=== PATIENT | female | born 1950 | race Caucasian/White ===

== ENCOUNTER 2020-02-09 10:35 | Outpatient (REF) | payer MEDICARE, SELFPAY ==
[2020-02-09 14:02] LABS: Hematocrit 43.2 % (37-47); Hemoglobin 14.4 g/dl (12.0-16.0); Mean Corpuscular HGB Conc 33.3 g/dl (31.0-35.0); Mean Corpuscular Hemoglobin 29.3 pg (27.0-33.0); Mean Platelet Volume 10.8 fL (9.4-12.3); Platelet Count 341 X10*3/uL (160-400); Red Blood Count 4.91 X10*6/uL (4.20-5.50); White Blood Count 6.7 X10*3/uL (4.8-10.8)
[2020-02-09 14:24] LABS: Alanine Aminotransferase 17 U/L (0-31); Anion Gap 16 (12-20); Aspartate Amino Transferase 14 U/L (5-31); Blood Urea Nitrogen 21 mg/dL (9-16); Calcium 9.4 mg/dL (8.4-10.2); Carbon Dioxide 27 mmol/L (22-29); Chloride 97 mmol/L (96-108); Cholesterol 180 mg/dL; Estimated Glomerular Filt Rate 49; HDL Cholesterol 54 mg/dL; LDL Cholesterol Calculated 90 mg/dl; Sodium 135 mmol/L (135-145); Triglycerides 182 mg/dL
[2020-02-09 14:26] LABS: Glucose Fasting 430 mg/dL (60-99)
[2020-02-09 14:45] LABS: TSH reflex Free T4 1.62 mIU/mL (0.32-4.0); Vitamin D 25-OH Total 36.6 ng/mL (>30)
[2020-02-09 15:06] LABS: Creatinine Urine 65.95 mg/dL; Microalbum/Creatinine Ratio Ur 13.6 ug/mg cr
== END 2020-02-09 10:36 | disposition home or self-care (01) ==
LOC: HO.HMGCLDS 10:35
PROVIDERS: Internal Medicine; PCP Internal Medicine; Visit Provider Internal Medicine
DX: Z00.01 Encounter for general adult medical examination with abnormal findings (principal); E11.9 Type 2 diabetes mellitus without complications; E78.5 Hyperlipidemia, unspecified; I10 Essential (primary) hypertension; R79.89 Other specified abnormal findings of blood chemistry; Z13.6 Encounter for screening for cardiovascular disorders; M85.852 Other specified disorders of bone density and structure, left thigh; R42 Dizziness and giddiness; Z83.49 Family history of other endocrine, nutritional and metabolic diseases
CPT/HCPCS: 36415; 80048; 80061; 82043; 82306; 84443; 84450; 84460; 85027

== ENCOUNTER 2020-07-09 10:34 | Outpatient (REF) | payer MEDICARE, SELFPAY ==
[2020-07-09 15:00] LABS: Estimated Average Glucose 212 mg/dL
[2020-07-09 15:28] LABS: Alanine Aminotransferase 15 U/L (0-31); Anion Gap 16 (12-20); Aspartate Amino Transferase 13 U/L (5-31); Blood Urea Nitrogen 20 mg/dL (9-16); Carbon Dioxide 28 mmol/L (22-29); Chloride 102 mmol/L (96-108); Cholesterol 168 mg/dL; Estimated Glomerular Filt Rate > 60; Glucose Fasting 200 mg/dL (60-99); HDL Cholesterol 55 mg/dL; LDL Cholesterol Calculated 89 mg/dl; Potassium 4.5 mmol/L (3.3-5.1); Sodium 141 mmol/L (135-145); Triglycerides 120 mg/dL
[2020-07-09 15:41] LABS: Vitamin D 25-OH Total 36.7 ng/mL (>30)
[2020-07-09 16:01] LABS: Creatinine Urine 192.91 mg/dL; Microalbum/Creatinine Ratio Ur 37.8 ug/mg cr
== END 2020-07-09 10:35 | disposition home or self-care (01) ==
LOC: HO.HMGCLDS 10:34
PROVIDERS: PCP Internal Medicine; Visit Provider Internal Medicine
DX: I10 Essential (primary) hypertension (principal); E11.29 Type 2 diabetes mellitus with other diabetic kidney complication; E11.65 Type 2 diabetes mellitus with hyperglycemia; E78.5 Hyperlipidemia, unspecified; R80.9 Proteinuria, unspecified; Z78.0 Asymptomatic menopausal state
CPT/HCPCS: 36415; 80048; 80061; 82043; 82306; 83036; 84450; 84460

== ENCOUNTER 2020-12-13 10:40 | Outpatient (REF) | payer MEDICARE, SELFPAY ==
[2020-12-13 14:08] LABS: Estimated Average Glucose 226 mg/dL; Hemoglobin A1c % 9.5 %
[2020-12-13 14:25] LABS: Alanine Aminotransferase 13 U/L (0-31); Anion Gap 14 (12-20); Aspartate Amino Transferase 12 U/L (5-31); Blood Urea Nitrogen 24 mg/dL (9-16); Carbon Dioxide 27 mmol/L (22-29); Chloride 104 mmol/L (96-108); Cholesterol 204 mg/dL; Estimated Glomerular Filt Rate 58; Glucose Fasting 259 mg/dL (60-99); HDL Cholesterol 62 mg/dL; LDL Cholesterol Calculated 117 mg/dl; Potassium 5.1 mmol/L (3.3-5.1); Sodium 140 mmol/L (135-145); Triglycerides 128 mg/dL
[2020-12-13 14:46] LABS: Vitamin D 25-OH Total 38.8 ng/mL (>30)
== END 2020-12-13 10:41 | disposition home or self-care (01) ==
LOC: HO.HMGCLDS 10:40
PROVIDERS: PCP Internal Medicine; Visit Provider Internal Medicine
DX: Z00.01 Encounter for general adult medical examination with abnormal findings (principal); E78.5 Hyperlipidemia, unspecified; E11.29 Type 2 diabetes mellitus with other diabetic kidney complication; E11.65 Type 2 diabetes mellitus with hyperglycemia; R80.9 Proteinuria, unspecified; I10 Essential (primary) hypertension; M85.89 Other specified disorders of bone density and structure, multiple sites; Z78.0 Asymptomatic menopausal state
CPT/HCPCS: 36415; 80048; 80061; 82306; 83036; 84450; 84460

== ENCOUNTER 2021-01-01 14:00 | Outpatient (REF) | payer MEDICARE, SELFPAY ==
--- NOTE | ~2021-01-01 | MM_ITS ---
EXAMINATION: MM SCREENING DIGITAL BREAST TOMOSYNTHESIS, BILATERAL CLINICAL INFORMATION: Screening. Asymptomatic. The lifetime risk of breast cancer based on the Tyrer-Cuzick Model is 9.3%. COMPARISON: Mammography: December 28, 2019 and studies dating back to January 13, 2011 TECHNIQUE: Digital breast tomosynthesis is performed in both the craniocaudal and mediolateral oblique views along with computer-aided detection (CAD). Synthesized 2D images are generated from the tomosynthesis. FINDINGS: The breasts are almost entirely fatty (ACR BI-RADS breast composition Category a). There are no significant masses, abnormal calcifications, or other abnormalities. MM/MM tomosynthesis screening BI IMPRESSION: There are no significant changes from prior study. ASSESSMENT: BI-RADS 1: Negative RECOMMENDATION: Routine annual mammography screening. This patient's information was entered into a reminder system with a target due date for their next mammogram.
--- NOTE | ~2021-01-01 | MM_ITS ---
EXAMINATION: BONE DENSITOMETRY CLINICAL INDICATION: Screening for osteoporosis. COMPARISON: Previous BD dated 06/12/2017 and baseline BD dated 01/13/2011. TECHNIQUE: Using a OneTwoSee DXA System (software version: 13.1) manufactured by [employer], dual-energy x-ray absorptiometry was performed of the lumbar spine and left hip. The images are of good technical quality. Summary results are attached. FINDINGS: AP SPINE L1-L4: Current: BMD 1.046 g/cm2, Z-score -0.5, T-score -1.1, osteopenia, 6.2% increase from previous, 2.3% decrease from baseline (<5% change is not significant). Prior: BMD 0.985 g/cm2. Baseline: BMD 1.071 g/cm2. LEFT FEMUR, NECK: Current: BMD 0.742 g/cm2, Z-score -1.2, T-score -2.1, osteopenia. Prior: BMD 0.836 g/cm2. Baseline: BMD 0.960 g/cm2. LEFT FEMUR, TOTAL: Current: BMD 0.879 g/cm2, Z-score -0.4, T-score -1.0, normal, 10.5% decrease from previous, 12.4% decrease from baseline (<5% change is not significant). Prior: BMD 0.982 g/cm2. Baseline: BMD 1.003 g/cm2. IDENTIFIED RISK FACTORS: Menopause. HISTORY OF FRACTURE: None listed. MEDICATIONS: Calcium or multivitamin. MM/XR DEXA axial skeleton IMPRESSION: 1. DIAGNOSIS: Osteopenia based on the lowest T-score value of -2.1 in the femoral neck applying World Health Organization criteria. 2. 10-YEAR FRACTURE RISK PREDICTION, FRAX: Major osteoporotic fracture (clinical spine, forearm, hip or shoulder) 11.6%. Hip fracture 2.2%. 3. Treatment Recommendations: NOF guidelines recommend consideration for treatment in postmenopausal women and men age 50 and older presenting with the following: -A hip or vertebral (clinical or morphometric) fracture. -T-score less than or equal to -2.5 at the femoral neck or spine after appropriate evaluation to exclude secondary causes. -Low bone mass at the hip or spine and a 10-year fracture probability by FRAX of greater than or equal to 3% for hip fracture or greater than or equal to 20% for major osteoporotic fracture based on the [place] adapted WHO algorithm. 4. Other Recommendations: All treatment decisions require clinical judgment and consideration of individual patient factors, including patient preferences, comorbidities, previous drug use, risk factors not captured in the FRAX model (e.g. frailty, falls, vitamin D deficiency, increased bone turnover, interval significant decline in bone density) and possible under or overestimation of fracture risk by FRAX. Additional medical evaluation for secondary cause of low bone mineral density may be appropriate. FUTURE SCAN RECOMMENDATION: People with diagnosed cases of osteoporosis or at high risk for fracture should have regular bone mineral density tests. For patients eligible for Medicare, routine testing is allowed once every 2 years. The testing frequency can be increased to one year for patients who have rapidly progressing disease, those who are receiving or discontinuing medical therapy to restore bone mass, or have additional risk factors.
== END 2021-01-01 14:01 | disposition home or self-care (01) ==
LOC: HO.MAMMO 14:00
PROVIDERS: PCP Internal Medicine; Visit Provider Internal Medicine
DX: Z13.820 Encounter for screening for osteoporosis (principal); Z78.0 Asymptomatic menopausal state; M85.89 Other specified disorders of bone density and structure, multiple sites; Z12.31 Encounter for screening mammogram for malignant neoplasm of breast
CPT/HCPCS: 77063; 77067; 77080

== ENCOUNTER 2021-04-01 08:05 | Outpatient (REF) | payer MEDICARE, SELFPAY ==
[2021-04-01 12:32] LABS: Vitamin D 25-OH Total 30.2 ng/mL (>30)
[2021-04-01 12:36] LABS: Estimated Average Glucose 346 mg/dL; Hemoglobin A1c % 13.7 %
[2021-04-01 12:42] LABS: Alanine Aminotransferase 14 U/L (0-31); Anion Gap 14 (12-20); Aspartate Amino Transferase 12 U/L (5-31); Blood Urea Nitrogen 20 mg/dL (9-16); Carbon Dioxide 25 mmol/L (22-29); Chloride 101 mmol/L (96-108); Cholesterol 157 mg/dL; Estimated Glomerular Filt Rate 58; HDL Cholesterol 42 mg/dL; LDL Cholesterol Calculated 82 mg/dl; Potassium 4.4 mmol/L (3.3-5.1); Sodium 136 mmol/L (135-145); Triglycerides 168 mg/dL
[2021-04-01 13:00] LABS: Glucose Fasting 350 mg/dL (60-99)
== END 2021-04-01 08:06 | disposition home or self-care (01) ==
LOC: HO.HMGCLDS 08:05
PROVIDERS: PCP Internal Medicine; Visit Provider Internal Medicine
DX: E11.65 Type 2 diabetes mellitus with hyperglycemia (principal); E11.29 Type 2 diabetes mellitus with other diabetic kidney complication; E78.5 Hyperlipidemia, unspecified; I10 Essential (primary) hypertension; M85.89 Other specified disorders of bone density and structure, multiple sites; R80.9 Proteinuria, unspecified
CPT/HCPCS: 36415; 80048; 80061; 82306; 83036; 84450; 84460

== ENCOUNTER 2021-07-11 09:12 | Outpatient (REF) | payer MEDICARE, SELFPAY ==
[2021-07-11 11:27] LABS: Estimated Average Glucose 186 mg/dL; Hemoglobin A1c % 8.1 %
[2021-07-11 11:37] LABS: Alanine Aminotransferase 13 U/L (0-31); Anion Gap 19 (12-20); Aspartate Amino Transferase 15 U/L (5-31); Blood Urea Nitrogen 25 mg/dL (9-16); Calcium 9.8 mg/dL (8.4-10.2); Carbon Dioxide 24 mmol/L (22-29); Chloride 101 mmol/L (96-108); Cholesterol 187 mg/dL; Estimated Glomerular Filt Rate 54; Glucose Fasting 148 mg/dL (60-99); HDL Cholesterol 49 mg/dL; LDL Cholesterol Calculated 112 mg/dl; Potassium 4.7 mmol/L (3.3-5.1); Sodium 139 mmol/L (135-145); Triglycerides 133 mg/dL
[2021-07-11 12:13] LABS: Creatinine Urine 80.76 mg/dL; Microalbum/Creatinine Ratio Ur 17.3 ug/mg cr
[2021-07-11 14:52] LABS: Vitamin D 25-OH Total 33.9 ng/mL (>30)
== END 2021-07-11 09:13 | disposition home or self-care (01) ==
LOC: HO.HMGCLDS 09:12
PROVIDERS: PCP Internal Medicine; Visit Provider Internal Medicine
DX: I10 Essential (primary) hypertension (principal); E78.5 Hyperlipidemia, unspecified; E11.29 Type 2 diabetes mellitus with other diabetic kidney complication; R80.9 Proteinuria, unspecified; E11.65 Type 2 diabetes mellitus with hyperglycemia; M85.89 Other specified disorders of bone density and structure, multiple sites; Z78.0 Asymptomatic menopausal state
CPT/HCPCS: 36415; 80048; 80061; 82043; 82306; 83036; 84450; 84460

== ENCOUNTER 2021-10-11 08:44 | Outpatient (REF) | payer MEDICARE, SELFPAY ==
[2021-10-11 11:39] LABS: Alanine Aminotransferase 17 U/L (0-31); Anion Gap 18 (12-20); Aspartate Amino Transferase 18 U/L (5-31); Blood Urea Nitrogen 37 mg/dL (9-16); Calcium 9.4 mg/dL (8.4-10.2); Carbon Dioxide 23 mmol/L (22-29); Chloride 102 mmol/L (96-108); Cholesterol 165 mg/dL; Estimated Glomerular Filt Rate 49; Glucose Fasting 151 mg/dL (60-99); HDL Cholesterol 47 mg/dL; LDL Cholesterol Calculated 91 mg/dl; Potassium 4.8 mmol/L (3.3-5.1); Sodium 138 mmol/L (135-145); Triglycerides 139 mg/dL
[2021-10-11 12:04] LABS: Estimated Average Glucose 229 mg/dL; Hemoglobin A1c % 9.6 %
== END 2021-10-11 08:45 | disposition home or self-care (01) ==
LOC: HO.HMGCLDS 08:44
PROVIDERS: PCP Internal Medicine; Visit Provider Internal Medicine
DX: E11.29 Type 2 diabetes mellitus with other diabetic kidney complication (principal); E11.65 Type 2 diabetes mellitus with hyperglycemia; E78.5 Hyperlipidemia, unspecified; I10 Essential (primary) hypertension; R80.9 Proteinuria, unspecified
CPT/HCPCS: 36415; 80048; 80061; 83036; 84450; 84460

== ENCOUNTER 2022-01-21 14:25 | Outpatient (REF) | payer MEDICARE, SELFPAY ==
--- NOTE | ~2022-01-21 | MM_ITS ---
EXAMINATION: MM SCREENING DIGITAL BREAST TOMOSYNTHESIS, BILATERAL CLINICAL INFORMATION: Screening. Asymptomatic. The lifetime risk of breast cancer based on the Tyrer-Cuzick Model is 8%. COMPARISON: Mammography: 01/01/2021, 12/28/2019, 08/24/2018 TECHNIQUE: Digital breast tomosynthesis is performed in both the craniocaudal and mediolateral oblique views along with computer-aided detection (CAD). Synthesized 2D images are generated from the tomosynthesis. Additional left CC and right CC x2 views are provided. FINDINGS: The breasts are almost entirely fatty (ACR BI-RADS breast composition Category a). There are no significant masses, abnormal calcifications, or other abnormalities. Stromal pattern is similar to prior studies. There is no developing density or architectural abnormality. The axilla and skin contours are unremarkable. No significant changes. MM/MM tomosynthesis screening BI IMPRESSION: No mammographic evidence of malignancy. ASSESSMENT: BI-RADS 1: Negative RECOMMENDATION: Routine annual mammography screening. This patient's information was entered into a reminder system with a target due date for their next mammogram.
== END 2022-01-21 14:26 | disposition home or self-care (01) ==
LOC: HO.MAMMO 14:25
PROVIDERS: PCP Internal Medicine; Visit Provider Internal Medicine
DX: Z12.31 Encounter for screening mammogram for malignant neoplasm of breast (principal)
CPT/HCPCS: 77063; 77067

== ENCOUNTER 2022-03-18 08:48 | Outpatient (REF) | payer MEDICARE, SELFPAY ==
[2022-03-18 12:21] LABS: Alanine Aminotransferase 13 U/L (0-31); Anion Gap 16 (12-20); Aspartate Amino Transferase 14 U/L (5-31); Blood Urea Nitrogen 25 mg/dL (9-16); Carbon Dioxide 28 mmol/L (22-29); Chloride 102 mmol/L (96-108); Cholesterol 199 mg/dL; Estimated Glomerular Filt Rate > 60; Glucose Fasting 135 mg/dL (60-99); HDL Cholesterol 57 mg/dL; LDL Cholesterol Calculated 120 mg/dl; Potassium 4.9 mmol/L (3.3-5.1); Sodium 141 mmol/L (135-145); Triglycerides 112 mg/dL
[2022-03-18 12:29] LABS: Vitamin D 25-OH Total 34.7 ng/mL (>30)
[2022-03-18 13:21] LABS: Estimated Average Glucose 163 mg/dL; Hemoglobin A1c % 7.3 %
== END 2022-03-18 08:49 | disposition home or self-care (01) ==
LOC: HO.HMGCLDS 08:48
PROVIDERS: PCP Internal Medicine; Visit Provider Internal Medicine
DX: E11.65 Type 2 diabetes mellitus with hyperglycemia (principal); E78.5 Hyperlipidemia, unspecified; I10 Essential (primary) hypertension
CPT/HCPCS: 36415; 80048; 80061; 82306; 83036; 84450; 84460

== ENCOUNTER 2022-08-19 09:00 | Outpatient (REF) | payer MEDICARE, SELFPAY ==
[2022-08-19 11:40] LABS: Estimated Average Glucose 171 mg/dL; Hemoglobin A1c % 7.6 %
[2022-08-19 12:01] LABS: Alanine Aminotransferase 12 U/L (0-31); Anion Gap 12 (12-20); Aspartate Amino Transferase 12 U/L (5-31); Blood Urea Nitrogen 20 mg/dL (9-16); Calcium 9.3 mg/dL (8.4-10.2); Carbon Dioxide 27 mmol/L (22-29); Chloride 106 mmol/L (96-108); Cholesterol 166 mg/dL; Estimated Glomerular Filt Rate > 60; Glucose Fasting 159 mg/dL (60-99); HDL Cholesterol 53 mg/dL; LDL Cholesterol Calculated 99 mg/dl; Potassium 4.3 mmol/L (3.3-5.1); Sodium 141 mmol/L (135-145); Triglycerides 74 mg/dL
[2022-08-19 12:09] LABS: Creatinine Urine 84.16 mg/dL; Microalbum/Creatinine Ratio Ur 20.1 ug/mg cr
[2022-08-19 12:18] LABS: Vitamin D 25-OH Total 42.4 ng/mL (>30)
== END 2022-08-19 09:01 | disposition home or self-care (01) ==
LOC: HO.HMGCLDS 09:00
PROVIDERS: PCP Internal Medicine; Visit Provider Internal Medicine
DX: E11.65 Type 2 diabetes mellitus with hyperglycemia (principal); E78.5 Hyperlipidemia, unspecified; I10 Essential (primary) hypertension; M17.11 Unilateral primary osteoarthritis, right knee; M85.89 Other specified disorders of bone density and structure, multiple sites; Z78.0 Asymptomatic menopausal state
CPT/HCPCS: 36415; 80048; 80061; 82043; 82306; 83036; 84450; 84460

== ENCOUNTER 2022-12-23 08:20 | Outpatient (REF) | payer MEDICARE, SELFPAY ==
[2022-12-23 12:26] LABS: Alanine Aminotransferase 11 U/L (0-31); Anion Gap 14 (12-20); Aspartate Amino Transferase 14 U/L (5-31); Blood Urea Nitrogen 27 mg/dL (9-16); Calcium 9.8 mg/dL (8.4-10.2); Carbon Dioxide 24 mmol/L (22-29); Chloride 106 mmol/L (96-108); Cholesterol 182 mg/dL (<200); Estimated Glomerular Filt Rate 59; Glucose Fasting 176 mg/dL (60-99); HDL Cholesterol 56 mg/dL (>40); LDL Cholesterol Calculated 95 mg/dL (<100); Potassium 4.3 mmol/L (3.3-5.1); Sodium 140 mmol/L (135-145); Triglycerides 156 mg/dL (<150)
[2022-12-23 12:34] LABS: Estimated Average Glucose 217 mg/dL; Hemoglobin A1c % 9.2 % (<6.0)
== END 2022-12-23 08:21 | disposition home or self-care (01) ==
LOC: HO.HMGCLDS 08:20
PROVIDERS: PCP Internal Medicine; Visit Provider Internal Medicine
DX: E11.65 Type 2 diabetes mellitus with hyperglycemia (principal); E78.5 Hyperlipidemia, unspecified; I10 Essential (primary) hypertension
CPT/HCPCS: 36415; 80048; 80061; 83036; 84450; 84460

== ENCOUNTER 2022-12-25 09:25 | Outpatient (AMB) | payer MEDICARE, SELFPAY ==
--- NOTE | 2022-12-25 09:34 | A.OFFPC_ITS ---
Vital Signs 12/25/22 09:39 Height 5 ft 6 in Weight 211 lb BMI 34.1 BP 132/70 Blood Pressure Location Rt brachial Position Sitting Pulse 64 Pulse Source Pulse Oximeter Pulse Oximetry (%) 97 Oxygen Delivery Method Room Air Intake Visit Reasons: Annual PE Intake Note: Pt is here today for her PE Allergies No Known Allergies Allergy (Verified 12/25/22 09:54) Medication List - Last Reconciled 12/25/22 by Jayleen Mujica MD atorvastatin 20 mg PO DAILY BD Ultra-Fine Short Pen Needle (pen needle, diabetic) administer 10 units subcutaneous at bedtime NS blood sugar diagnostic (RSB SPINEuch Verio test strips) Check blood sugar 3 times a day before meals empagliflozin 25 mg PO QAM lisinopril 5 mg PO DAILY metformin 1,000 mg PO BID 90 days valacyclovir 2,000 mg (2 x 1 gram) PO Q12H PRN Tobacco use date assessed: 12/25/22 Fall risk assessment: No Falls in past year Last assessed Fall Risk: 12/25/22 Dental Screening Dental Screen Date: 12/25/22 Did you have a dental visit in the last 12 months?: Yes Did you have a dental problem in the last 6 months where you did not have access to dental care?: Yes Was dental information given to patient?: Patient has dentist HPI Annual PE HPI Details 72-year-old lady with diabetes mellitus, hyperlipidemia, hypertension and osteopenia and multiple sites, here today for her physical exam. Glucose not well controlled on current treatment with Jardiance and metformin, with hemoglobin A1c today at 9.2%, her fasting lipids however are within normal limits, taking atorvastatin 20 mg daily. Blood pressure also stable and controlled on lisinopril 5 mg daily. Up-to-date with her screening mammogram, due for repeat bone density scan this year. She is also up-to-date with her diabetes retinopathy screening done earlier this year. She had a colonoscopy done by Dr. Donovan in 2017, with removal of a tubular adenoma, overdue for repeat screening [facility] Medical History (Updated 12/25/22 @ 10:19 by Jayleen Mujica MD) History of adenomatous polyp of colon Osteoarthritis of right knee Tubular adenoma of colon Recurrent cold sores Osteopenia of multiple sites HTN (hypertension) Dyslipidemia Diabetes mellitus with hyperglycemia, without long-term current use of insulin Surgical History History of knee surgery History of tubal ligation Family History Father Colon cancer CVD (cardiovascular disease) HTN (hypertension) Mother Goiter Diabetes mellitus Sister No problems noted. Sister No problems noted. Sister No problems noted. Son Mental health disorder Son No problems noted. Social History Housing: House Alcohol intake: never Patient Tobacco Use Status: Never used Tobacco e-Cigarette/Vaping Use: Never Used Second Hand Smoke Exposure: No service: No Current occupational status: retired Cognitive needs: No Hearing needs: No Vision needs: Yes Questionnaire PHQ-9 Over the last 2 weeks, how often have you been bothered by any of the following problems? Depression Screening Interpretation: Negative Source: Developed by Drs. Rodger Harrington, Aris Salazar and colleagues, with an educational cassy from [employer]. Thrive Questionnaire Date Thrive assessed: 08/22/22 KIMBER-7 AMB Questionnaire KIMBER-7 Date KIMBER - 7 assessed: 08/22/22 Source: Developed by Drs. Rodger Harrington, Sharon Oneil, Aris Oejda and colleagues, with an educational cassy from [employer] [facility]. Review of Systems Const Denies difficulty sleeping, Denies fatigue, Denies fever(s), Denies headache(s), Denies malaise and Reports weight gain Eyes Details: Up-to-date with her retinopathy screening Denies change in vision and Reports requires corrective lenses ENT Denies dizziness, Denies headache(s), Denies nasal congestion, Denies nasal discharge and Denies sore throat Card Denies chest pain, Denies lightheadedness, Denies palpitations and Denies dyspnea Resp Denies chest congestion, Denies cough and Denies dyspnea GI Denies abdominal pain, Denies change in bowel habits and Denies heartburn Denies urinary frequency, Denies dysuria and Denies urinary urgency Musc Denies joint swelling, Reports stiffness and Denies tingling Skin/Breast Denies breast swelling, Denies breast pain, Denies breast mass and Denies rash Neuro Denies dizziness, Denies headache(s) and Denies tingling Psych Denies anxiety and Denies depression Endo Denies fatigue, Denies polydipsia, Denies polyuria and Denies palpitations Shiv/Lymph Reports no additional complaints Aller/Immun Reports no additional complaints Physical exam (Primary Care) Vital Signs: Last Vital Signs Pulse 64 12/25/22 09:39 BP 132/70 12/25/22 09:39 Pulse Ox 97 12/25/22 09:39 Oxygen Delivery Method Room Air 12/25/22 09:39 BMI result Body Mass Index 34.1 Tobacco/Smoking Status: Tobacco use Status Tobacco use date assessed 12/25/22 12/25/22 09:35 Patient Tobacco Use Status Never used Tobacco 12/25/22 09:35 e-Cigarette/Vaping Use Never Used 12/25/22 09:35 Depression Screening Interpretation: Negative Thrive Assessment: Date of Thrive Assessment Date Thrive assessed 08/22/22 12/25/22 09:35 Const Other: Alert oriented x3, no acute distress noted ambulatory with normal gait Orientation/consciousness: patient oriented x3 HENMT General nose exam: Normal external nose present and No nasal discharge present Face and sinus: Yes face symmetric Mouth: moist mucous membranes Eyes General: appearance normal, both eyes and all related structures Neck Neck: Yes full ROM, Yes no lymphadenopathy and Yes supple Chest Breast/axilla palpation: normal palpation of the breasts and normal palpation of the axillae Resp Effort & Inspection: normal respiratory effort and able to speak in complete sentences Auscultation: clear to auscultation bilaterally Cardio Other: S1 S2 present regular rate and rhythm Palpation: normal PMI GI Inspection: Yes normal to inspection Palpation (GI): nontender, no guarding and no masses Auscultation: normal bowel sounds General: Yes no CVA tenderness Back/Spine/Pelvis Back: no CVA tenderness and No back tenderness Skin General skin exam: no rashes or lesions noted Neuro General: patient oriented x3, gait normal, tone normal, moves all extremities, Normal light touch and pain sensation, no focal motor deficits, CN's II-XI intact bilaterally and normal sensation to monofilament Extrem General: Yes normal to inspection, Yes full ROM, Yes no joint enlargement, Yes no pedal edema, Yes no calf tenderness and Yes normal gait Psych Appearance: grossly normal and well kempt Mental Status: mental status grossly normal Speech and movement: Normal speech and movement present Affect: normal affect Attitude: cooperative Thought process: Normal thought process present Immunizations pneumoc 20-claudia conj-dip cr(PF) 0.5 mL IM syringe Performing Provider: Jayleen Mujica MD Performing Location: [facility] Administered by: Sol Roe CMA on 12/25/22 10:17 Dose Route Admin Location Dispensed Lot Number Expiration Date NDC Big Data Engineer 0.5 mL IM Left Deltoid 0.5 mL [id number] 02/18/24 5306-9028-44 [employer] VIS Given Date VIS Provided VIS Publication Date 12/25/22 Single Vaccine 21 Eligibility Eligibility Date Funding Source Not VFC Eligible 12/25/22 Private Results Reviewed Results Reviewed: RUN: 12/25/2252 PAGE 1 [facility] [address] [place] [phone] Library Media Technician: Carlos Eller M.D. Specimen Inquiry Name: Criss Geller Age/Sex: 72/F : 1950 Unit#: [id number] Attend Dr: Jayleen Mujica MD Re12/23/22 Status: DEP REF Location: [facility] Disch: SPEC : [id number] JENNA: 12/23/22 STATUS: COMP REQ : [id number] RECD: 12/23/[address]: Jayleen Mujica MD COMP: 12/23/22 ENTERED: 12/23/[address]: ORDERED: Met Prof Fast, AST, ALT, Lipid Panel Test Result Flag Reference Site Sodium 140 135-145 mmol/L Potassium 4.3 3.3-5.1 mmol/L CL 106 96-108 mmol/L CO2 24 22-29 mmol/L Gap 14 12-20 BUN 27 H 9-16 mg/dL Creat 0.94 0.5-1.4 mg/dL EGFR 59 NOTE: For -[place] individuals, multiply the result by 1.210. Chronic Kidney Disease: Estimated GFR < 60 mL/min/1.73m2 Severe Kidney Disease: Estimated GFR < 15 mL/min/1.73m2 FBS 176 H 60-99 mg/dL A fasting glucose of 126 mg/dl or greater on more than one occasion is considered diagnostic of diabetes. CA 9.8 8.4-10.2 mg/dL AST (GOT) 14 5-31 U/L ALT (GPT) 11 0-31 U/L Triglyceride 156 H <150 mg/dL Desirable Triglyceride: less than 150 mg/dL Borderline High Triglyceride 150-199 mg/dL High Triglyceride: 200-499 mg/dL Very High Triglyceride: greater than or equal to 5OO mg/dL Cholesterol 182 <200 mg/dL Desirable Cholesterol: less than 200 mg/dL Borderline High Cholesterol: 200-239 mg/dL High Cholesterol: greater than 239 mg/dL LDL Calculated 95 <100 mg/dL Desirable LDL: less than 100 mg/dL Near Optimal/Above Optimal LDL: 110-129 mg/dL Borderline High LDL: 130-159 mg/dL High LDL: 160-189 mg/dL Very High LDL: greater than or equal to 190 mg/dL HDL 56 >40 mg/dL Desirable HDL: greater than 40 mg/dL Note: This HDL assay may give artificially low results in patients with liver disease. RUN: 12/25/22 0935 PAGE 1 [facility] [address] [place] [phone] Library Media Technician: Carlos Eller M.D. Specimen Inquiry Name: GellerCriss Age/Sex: 72/F : 1950 Unit#: [id number] Attend Dr: Jayleen Mujica MD Re12/23/22 Status: DEP REF Location: [facility] Disch: SPEC : [id number] JENNA: 12/23/22 STATUS: COMP REQ : [id number] RECD: 12/23/[address]: Jayleen Mujica MD COMP: 12/23/22 ENTERED: 12/23/[address] [facility] [address]: ORDERED: Hgb A1c Test Result Flag Reference Site A1c % 9.2 H <6.0 % Hemoglobin A1C Reference Range Adults: 4.8 - 6.0 % Non diabetic: < 6.0 % Goal: < 7.0 % Additional Action Suggested: > 8.0 % Note: Hemoglobin A1c results are invalid for patients with abnormal amounts of HbF. Blood transfusions may impact the HbA1c concentration in the patien t sample. Est. Avg. Gluc 217 mg/dL ENTERED: 08/19/[address] [facility] [address]: ORDERED: MICARU Test Result Flag Reference Site Creat, Ur 84.16 mg/dL Microalbumin Ur 17.0 mg/L Alb/Creat Ratio 20.1 ug/mg cr Albumin/Creatinine Ratio Reference Ranges: Normal: < 30 ug/mg creatinine Microalbuminuria: 30 - 300 ug/mg creatinine Clinical Albuminuria: > 300 ug/mg creatinine Assessment and Plan Assessment & Plan (1) Annual visit for general adult medical examination with abnormal findings: Code(s): Z00.01 - Encounter for general adult medical examination with abnormal findings Plan: Recent fasting lab results discussed with patient . Recommended dental visit every 6 months and continue with yearly eye exams . Take adequate calcium in diet and vitamin-D 3 at 2000 IU per cap once a day, in addition to weight- bearing exercises to help maintain good muscle tone and weight control. Instructed to do self-breast exam, and continue to get yearly mammogram, already scheduled for 01/27/2023, ordered a bone density scan to be done same day. Prevnar 20 given today, reminded to get her yearly flu shot and the new COVID booster as well as RSV and to get her Shingrix vaccine may being sometime next year. Referred to GI Clinic for her repeat colonoscopy, last done in [address] Donovna with removal of a tubular adenoma polyp (2) Osteopenia of multiple sites: Code(s): M85.89 - Other specified disorders of bone density and structure, multiple sites Plan: Continue doing regular weight-bearing exercise, take adequate calcium from dieta ry sources and continue with taking pijp-wzu-suuqocq vitamin-D 3 at 2000 units daily. Repeat bone density scan ordered to be scheduled again with her screening mammogram on 01/27/2023 [facility] [place] (3) HTN (hypertension): Code(s): I10 - Essential (primary) hypertension Qualifiers: Hypertension type: essential hypertension Qualified Code(s): I10 - Essential (primary) hypertension Plan: Blood pressure at goal of less than 130/80. Continue with lisinopril 5 mg daily. Reinforced importance of following a low sodium diet, getting regular exercise, and lowering stress levels. (4) Dyslipidemia: Code(s): E78.5 - Hyperlipidemia, unspecified Plan: Reviewed recent fasting lipid profile with patient with levels within normal limit . Continue with , in addition to adherence to low-cholesterol diet and regular exercise, at least 30 minutes 3 to 4 times a week. Advised patient to make healthy food choices, eat more fruits, vegetables, whole grains, wild caught fish and low-fat dairy. Limit amount of meat and fried or fatty food products, as well as processed foods and fast foods. Follow-up scheduled with repeat fasting lipid panel in 3 months. (5) Diabetes mellitus with hyperglycemia, without long-term current use of insulin: Code(s): E11.65 - Type 2 diabetes mellitus with hyperglycemia Qualifiers: Diabetes mellitus type: type 2 Qualified Code(s): E11.65 - Type 2 diabetes mellitus with hyperglycemia Plan: Diabetes mellitus not well controlled, with hemoglobin A1c at 9.2%, despite taking metformin a 1000 mg twice a day and Jardiance 25 mg in the morning. Previously was doing well on Trulicity but insurance denied coverage. Will try on Mounjaro 2.5 mg injected subcutaneously once a week, instructed on proper use of injection, discussed possible side effects which may include abdominal cramping, nausea some diarrhea 1st couple of days on the medication. Up-to-date with her diabetes retinopathy screening, Prevnar 20 given today, reminded to get her yearly flu shot and to get a COVID booster and RSV vaccine later this year. (6) Tubular adenoma of colon: Code(s): D12.6 - Benign neoplasm of colon, unspecified Plan: Referred to GI for her repeat colonoscopy (7) Colon cancer screening: Code(s): Z12.11 - Encounter for screening for malignant neoplasm of colon Plan: Referral to GI Clinic for repeat colonoscopy Orders: Orders Pneumococcal 20 Immunization Today Z23 - Encounter for immunization Hemoglobin A1c 03/20/23 E11.65 - Type 2 diabetes mellitus with hyperglycemia, E78.5 - Hyperlipidemia, unspecified, I10 - Essential (primary) hypertension, M85.89 - Other specified disorders of bone density and structure, multiple sites Aspartate Amino Transferase 03/20/23 E11.65 - Type 2 diabetes mellitus with hyperglycemia, E78.5 - Hyperlipidemia, unspecified, I10 - Essential (primary) hypertension, M85.89 - Other specified disorders of bone density and structure, multiple sites Basic Metabolic Panel Fasting 03/20/23 E11.65 - Type 2 diabetes mellitus with hyperglycemia, E78.5 - Hyperlipidemia, unspecified, I10 - Essential (primary) hypertension, M85.89 - Other specified disorders of bone density and structure, multiple sites Vitamin D 25-OH Total 03/20/23 E11.65 - Type 2 diabetes mellitus with hyperglycemia, E78.5 - Hyperlipidemia, unspecified, I10 - Essential (primary) hypertension, M85.89 - Other specified disorders of bone density and structure, multiple sites, Z78.0 - Asymptomatic menopausal state XR DEXA axial skeleton Today M85.89 - Other specified disorders of bone density and structure, multiple sites, Z78.0 - Asymptomatic menopausal state Alanine Aminotransferase 03/20/23 E11.65 - Type 2 diabetes mellitus with hyperglycemia, E78.5 - Hyperlipidemia, unspecified, I10 - Essential (primary) hypertension, M85.89 - Other specified disorders of bone density and structure, multiple sites Lipid Panel 03/20/23 E11.65 - Type 2 diabetes mellitus with hyperglycemia, E78.5 - Hyperlipidemia, unspecified, I10 - Essential (primary) hypertension, M85.89 - Other specified disorders of bone density and structure, multiple sites Referrals Gastroenterology Referral Z12.11 - Encounter for screening for malignant neoplasm of colon, Z86.010 - Personal history of colonic polyps Medications: New tirzepatide (Mounjaro) 2.5 mg (0.5 mL) subcut QWEEK 4 weeks 2 mL 0RF Coding Level of Care Code Est Pt Prev Care >65y(37580) Diagnoses Annual visit for general adult medical examination with abnormal findings Z00.01 Osteopenia of multiple sites M85.89 Essential hypertension I10 Hypertension type: essential hypertension Dyslipidemia E78.5 Type 2 diabetes mellitus with hyperglycemia, without long-term current use of insulin E11.65 Diabetes mellitus type: type 2 Tubular adenoma of colon D12.6 Colon cancer screening Z12.11
[2022-12-25 09:39] VITALS: BP 132/70; PULSE 64; O2SAT 97; BMI 34.1
== END 2022-12-25 10:37 | disposition home or self-care (01) ==
PROVIDERS: Visit Provider Internal Medicine
DX: Z00.00 Encounter for general adult medical examination without abnormal findings (principal); I10 Essential (primary) hypertension; E11.65 Type 2 diabetes mellitus with hyperglycemia; Z23 Encounter for immunization; M85.89 Other specified disorders of bone density and structure, multiple sites; E78.5 Hyperlipidemia, unspecified; D12.6 Benign neoplasm of colon, unspecified
CPT/HCPCS: 90471; 90677; 99397

== ENCOUNTER 2023-01-27 14:00 | Outpatient (REF) | payer MEDICARE, SELFPAY | END 2023-01-27 14:01 | disposition home or self-care (01) | LOC: HO.MAMMO 14:00 | PROVIDERS: PCP Internal Medicine; Visit Provider Internal Medicine | DX: Z12.31 Encounter for screening mammogram for malignant neoplasm of breast (principal); Z13.820 Encounter for screening for osteoporosis; Z78.0 Asymptomatic menopausal state; M85.89 Other specified disorders of bone density and structure, multiple sites | CPT/HCPCS: 77063; 77067; 77080 ==

== ENCOUNTER → 2023-01-27 15:00 | Outpatient (BNV) | payer MEDICARE, SELFPAY | PROVIDERS: PCP Internal Medicine; Visit Provider Radiology Diagnostic Radiology | DX: Z12.31 Encounter for screening mammogram for malignant neoplasm of breast (principal) | CPT/HCPCS: 77063; 77067 ==

== ENCOUNTER → 2023-02-11 14:10 | Outpatient (BNVA) | payer MEDICARE, SELFPAY | PROVIDERS: PCP Internal Medicine; Visit Provider Physician Assistant ==

== ENCOUNTER 2023-04-15 08:20 | Outpatient (REF) | payer MEDICARE, SELFPAY ==
[2023-04-15 12:20] LABS: Estimated Average Glucose 278 mg/dL; Hemoglobin A1c % 11.3 % (<6.0)
[2023-04-15 12:28] LABS: Alanine Aminotransferase 16 U/L (0-31); Anion Gap 14 (12-20); Aspartate Amino Transferase 16 U/L (5-31); Blood Urea Nitrogen 27 mg/dL (9-16); Calcium 9.8 mg/dL (8.4-10.2); Carbon Dioxide 24 mmol/L (22-29); Chloride 104 mmol/L (96-108); Cholesterol 187 mg/dL (<200); Estimated Glomerular Filt Rate > 60; Glucose Fasting 185 mg/dL (60-99); HDL Cholesterol 55 mg/dL (>40); LDL Cholesterol Calculated 94 mg/dL (<100); Potassium 4.3 mmol/L (3.3-5.1); Sodium 138 mmol/L (135-145); Triglycerides 191 mg/dL (<150)
[2023-04-15 12:33] LABS: Vitamin D 25-OH Total 47.6 ng/mL (>30)
== END 2023-04-15 08:21 | disposition home or self-care (01) ==
LOC: HO.HMGCLDS 08:20
PROVIDERS: PCP Internal Medicine; Visit Provider Internal Medicine
DX: E11.65 Type 2 diabetes mellitus with hyperglycemia (principal); I10 Essential (primary) hypertension; E78.5 Hyperlipidemia, unspecified; M85.89 Other specified disorders of bone density and structure, multiple sites; Z78.0 Asymptomatic menopausal state
CPT/HCPCS: 36415; 80048; 80061; 82306; 83036; 84450; 84460

== ENCOUNTER 2023-05-27 08:56 | Outpatient (AMB) | payer MEDICARE, SELFPAY ==
[2023-05-27 09:00] VITALS: BP 122/60; PULSE 65; O2SAT 98; BMI 33.6
--- NOTE | 2023-05-27 09:00 | A.OFFPC_ITS ---
Vital Signs 05/27/23 09:00 Height 5 ft 6 in Weight 208 lb BMI 33.6 BP 122/60 Blood Pressure Location Rt brachial Position Sitting Pulse 65 Pulse Source Pulse Oximeter Pulse Oximetry (%) 98 Oxygen Delivery Method Room Air Intake Visit Reasons: f/u labs Intake Note: Pt is here today to f/u labs Allergies No Known Allergies Allergy (Verified 05/27/23 09:01) Tobacco use date assessed: 05/27/23 Fall risk assessment: No Falls in past year Last assessed Fall Risk: 05/27/23 Dental Screening Dental Screen Date: 05/27/23 Did you have a dental visit in the last 12 months?: Yes Did you have a dental problem in the last 6 months where you did not have access to dental care?: No Was dental information given to patient?: Patient has dentist HPI f/u labs HPI Details 73-year-old lady here today for follow-u p on her diabetes mellitus, dyslipidemia and hypertension. Currently on lisinopril 5 mg daily, metformin a 1000 mg twice a day +empagliflozin 25 mg daily and atorvastatin 20 mg daily. She has been c ompliant with taking her medications but has not been fully compliant with diet nor does she get any regular exercise this past few months. Latest hemoglobin A1c is at 11.3%, higher than last check, fasting lipids are within normal. She was previously on Trulicity, but was unable to afford the medication due to its high cost, switched to Mounjaro, but was not covered by insurance Laboratory Tests 08/19/22 04/15/23 04/15/23 09:05 08:25 08:25 Estimat Average Gl ucose 278 Hemoglobin A1c % 11.3 H Urine Creatinine 84.16 Urine Microalbumin 17.0 Microalb/Creat Rat io 20.1 PFSH Medical History History of adenomatous polyp of colon Osteoarthritis of right knee Tubular adenoma of colon Recurrent cold sores Osteopenia of multiple sites HTN (hypertension) Dyslipidemia Diabetes mellitus with hyperglycemia, without long-term current use of insulin Surgical History History of knee surgery History of tubal ligation Family History Father Colon cancer CVD (cardiovascular disease) HTN (hypertension) Mother Goiter Diabetes mellitus Sister No problems noted. Sister No problems noted. Sister No problems noted. Son Mental health disorder Son No problems noted. Social History Housing: House Alcohol intake: never Patient Tobacco Use Status: Never used Tobacco e-Cigarette/Vaping Use: Never Used Second Hand Smoke Exposure: No service: No Current occupational status: retired Cognitive needs: No Hearing needs: No Vision needs: Yes Questionnaire PHQ-9 Over the last 2 weeks, how often have you been bothered by any of the following problems? 1. Little interest or pleasure in doing things: not at all 2. Feeling down, depressed, or hopeless: not at all 3. Trouble falling or staying asleep, or sleeping too much: not at all 4. Feeling tired or having little energy: not at all 5. Poor appetite or overeating: not at all 6. Feeling bad about yourself - or that you are a failure or have let yourself or your family down: not at all 7. Trouble concentrating on things, such as reading the newspaper or watching television: not at all 8. Moving or speaking so slowly that other people could have noticed. Or the opposite - being so fidgety or restless that you have been moving around a lot more than usual: not at all 9. Thoughts that you would be better off or of hurting yourself in some way: not at all Total score: 0 Depression Screening Interpretation: Negative Depression Screening Done: Yes 76404 - PHQ-9 Billing: Yes Source: Developed by Drs. Rodger Harrington, Sharon Oneil, Aris Ojeda and colleagues, with an educational cassy from [employer]. Thrive Questionnaire Date Thrive assessed: 05/27/23 I am a: Patient What is your living situation today?: I have a steady place to live Within the past 12 months, did the food you bought not last and you didn't have the money to get more?: Never true Within the past 12 months, did you worry whether your food would run out before you got money to buy more?: Never true Do you have trouble paying for medicines?: No Do you have trouble getting transportation to medical appointments?: No Do you have trouble paying your heating and electricity bill?: No Do you have trouble taking care of your child, family member or friend?: No Do you have trouble with day-to-day activities such as bathing, preparing meals, shopping, managing finances, etc.?: No Are you currently unemployed and looking for a job?: No Are you interested in more education?: No THRIVE Score: 0 AUDIT C Alcohol Use Questionnaire (AUDIT-C) 1. How often do you have a drink containing alcohol?: Never Total Score: 0 KIMBER-7 AMB Questionnaire KIMBER-7 Date KIMBER - 7 assessed: 05/27/23 Feeling nervous, anxious, or on edge: 0 = Not at all Not being able to stop or control worryin = Not at all Worrying too much about different things: 0 = Not at all Trouble relaxin = Not at all Being so restless that it is hard to sit still: 0 = Not at all Becoming easily annoyed or irritable: 0 = Not at all Feeling afraid as if something awful might happen: 0 = Not at all Total KIMBER-7 score (0-4 normal; 5-9 mild; 10-14 moderate; 15-21 severe): 0 Source: Developed by Drs. Rodger Harrington, Sharon Oneil, Aris Ojeda and colleagues, with an educational cassy from [employer]. KIMBER-7 Assessment Billing KIMBER-7 Assessment Tool: KIMBER-7 Assessment 39876 Review of Systems Const Denies body aches, Denies difficulty sleeping, Denies fatigue, Denies fever(s), Denies headache(s), Denies malaise and Reports weight loss Eyes Details: Up-to-date with her retinopathy screening, sees [facility] , due 05/2023 Denies change in vision and Reports requires corrective lenses ENT Denies dizziness, Denies headache(s), Denies nasal congestion, Denies nasal discharge and Denies sore throat Card Denies chest pain, Denies lightheadedness, Denies palpitations and Denies dyspnea Resp Denies chest congestion, Denies cough and Denies dyspnea GI Denies abdominal pain, Denies change in bowel habits and Denies heartburn Denies urinary frequency, Denies dysuria and Denies urinary urgency Musc Denies joint swelling, Reports stiffness and Denies tingling Skin/Breast Denies breast swelling, Denies breast pain, Denies breast mass and Denies rash Neuro Denies dizziness, Denies headache(s) and Denies tingling Psych Denies anxiety and Denies depression Endo Denies fatigue, Denies polydipsia, Denies polyuria and Denies palpitations Shiv/Lymph Reports no additional complaints Aller/Immun Reports no additional complaints Physical exam (Primary Care) Vital Signs: Last Vital Signs Pulse 65 05/27/23 09:00 BP 122/60 05/27/23 09:00 Pulse Ox 98 05/27/23 09:00 Oxygen Delivery Method Room Air 05/27/23 09:00 BMI result Body Mass Index 33.6 Tobacco/Smoking Status: Tobacco use Status Tobacco use date assessed 05/27/23 05/27/23 09:01 Patient Tobacco Use Status Never used Tobacco 05/27/23 09:01 e-Cigarette/Vaping Use Never Used 05/27/23 09:01 PHQ-9: PHQ-9 Score PHQ-9: Total score 0 05/27/23 09:10 Depression Screening Interpretation: Negative Thrive Assessment: Date of Thrive Assessment Date Thrive assessed 05/27/23 05/27/23 09:10 Const Other: Alert oriented x3, no acute distress noted ambulatory with normal gait Orientation/consciousness: patient oriented x3 [facility] General nose exam: Normal external nose present and No nasal discharge present Face and sinus: Yes face symmetric Mouth: moist mucous membranes Eyes General: appearance normal, both eyes and all related structures Neck Neck: Yes full ROM, Yes no lymphadenopathy and Yes supple Chest Breast/axilla palpation: normal palpation of the breasts and normal palpation of the axillae Resp Effort & Inspection: normal respiratory effort and able to speak in complete sentences Auscultation: clear to auscultation bilaterally Cardio Other: S1 S2 present regular rate and rhythm Palpation: normal PMI GI Inspection: Yes normal to inspection Palpation (GI): nontender, no guarding and no masses Auscultation: normal bowel sounds General: Yes no CVA tenderness Back/Spine/Pelvis Back: no CVA tenderness and No back tenderness Skin General skin exam: no rashes or lesions noted Neuro General: patient oriented x3, gait normal, tone normal, moves all extremities, Normal light touch and pain sensation, no focal motor deficits, CN's II-XI intact bilaterally and normal sensation to monofilament Extrem General: Yes normal to inspection, Yes full ROM, Yes no joint enlargement, Yes no pedal edema, Yes no calf tenderness and Yes normal gait Psych Appearance: grossly normal and well kempt Mental Status: mental status grossly normal Speech and movement: Normal speech and movement present Affect: normal affect Attitude: cooperative Thought process: Normal thought process present Results Reviewed Results Reviewed: Name: Criss Geller Age/Sex: 73/F : 1950 Unit#: [id number] Attend Dr: Jayleen Mujica MD Re04/15/23 Status: DEP REF Location: [facility] Disch: SPEC : [id number] JENNA: 04/15/23 STATUS: COMP REQ : [id number] RECD: 04/15/[address]: Jayleen Mujica MD COMP: 04/15/23 ENTERED: 04/15/[address] [facility] [address]: ORDERED: Met Prof Fast, AST, ALT, Lipid Panel, Vitamin D 25-OH Test Result Flag Reference Sodium 138 135-145 mmol/L Potassium 4.3 3.3-5.1 mmol/L CL 104 96-108 mmol/L CO2 24 22-29 mmol/L Gap 14 12-20 BUN 27 H 9-16 mg/dL Creat 0.84 0.5-1.4 mg/dL EGFR > 60 NOTE: For -[place]aman[place] individuals, multiply the result by 1.210. Chronic Kidney Disease: Estimated GFR < 60 mL/min/1.73m2 Severe Kidney Disease: Estimated GFR < 15 mL/min/1.73m2 FBS 185 H 60-99 mg/dL A fasting glucose of 126 mg/dl or greater on more than one occasion is considered diagnostic of diabetes. CA 9.8 8.4-10.2 mg/dL AST (GOT) 16 5-31 U/L ALT (GPT) 16 0-31 U/L Triglyceride 191 H <150 mg/dL Desirable Triglyceride: less than 150 mg/dL Borderline High Triglyceride 150-199 mg/dL High Triglyceride: 200-499 mg/dL Very High Triglyceride: greater than or equal to 5OO mg/dL Cholesterol 187 <200 mg/dL Desirable Cholesterol: less than 200 mg/dL Borderline High Cholesterol: 200-239 mg/dL High Cholesterol: greater than 239 mg/dL LDL Calculated 94 <100 mg/dL Desirable LDL: less than 100 mg/dL Near Optimal/Above Optimal LDL: 110-129 mg/dL Borderline High LDL: 130-159 mg/dL High LDL: 160-189 mg/dL Very High LDL: greater than or equal to 190 mg/dL HDL 55 >40 mg/dL Desirable HDL: greater than 40 mg/dL Note: This HDL assay may give artificially low results in patients with liver disease. Vit D 25-OH Tot 47.6 >30 ng/mL Health Based Reference Values* < 20 ng/mL Deficient 20-30 ng/mL Insufficient > 30 ng/mL Sufficient Assessment and Plan Assessment & Plan (1) Diabetes mellitus with hyperglycemia, without long-term current use of insulin: Code(s): E11.65 - Type 2 diabetes mellitus with hyperglycemia Qualifiers: Diabetes mellitus type: type 2 Qualified Code(s): E11.65 - Type 2 diabetes mellitus with hyperglycemia Plan: Restarted back on Trulicity 0.75 mg once weekly injection, continue with metformin and empagliflozin. Reinforced importance of following diabetic diet and getting regular exercise. Up-to-date with her diabetes retinopathy screening, goes to [facility], has an appointment for her follow-up again this month. Will repeat another set of labs in August 2023 and see me back for follow-up in September 2023 (2) HTN (hypertension): Code(s): I10 - Essential (primary) hypertension Qualifiers: Hypertension type: essential hypertension Qualified Code(s): I10 - Essential (primary) hypertension Plan: Blood pressure at goal of less than 130/80. Continue with current medication. Reinforced importance of following a low sodium diet, getting regular exercise, and lowering stress levels. (3) Dyslipidemia: Code(s): E78.5 - Hyperlipidemia, unspecified Plan: Reviewed recent fasting lipid profile with patient with levels goal except for higher triglycerides . Continue with atorvastatin 20 mg daily , in addition to adherence to low-cholesterol diet and regular exercise, at least 30 minutes 3 to 4 times a week. Advised patient to make healthy food choices, eat more fruits, vegetables, whole grains, wild caught fish and low-fat dairy. Limit amount of meat and fried or fatty food products, as well as processed foods and fast foods. Follow-up scheduled with repeat fasting lipid panel in 3 months. Orders: Orders Alanine Aminotransferase 09/06/23 E11.65 - Type 2 diabetes mellitus with hyperglycemia, E78.5 - Hyperlipidemia, unspecified, I10 - Essential (primary) hypertension, M85.89 - Other specified disorders of bone density and structure, multiple sites, Z78.0 - Asymptomatic menopausal state Basic Metabolic Panel Fasting 09/06/23 E11.65 - Type 2 diabetes mellitus with hyperglycemia, E78.5 - Hyperlipidemia, unspecified, I10 - Essential (primary) hypertension, M85.89 - Other specified disorders of bone density and structure, multiple sites, Z78.0 - Asymptomatic menopausal state Lipid Panel 09/06/23 E11.65 - Type 2 diabetes mellitus with hyperglycemia, E78.5 - Hyperlipidemia, unspecified, I10 - Essential (primary) hypertension, M85.89 - Other specified disorders of bone density and structure, multiple sites, Z78.0 - Asymptomatic menopausal state Aspartate Amino Transferase 09/06/23 E11.65 - Type 2 diabetes mellitus with hyperglycemia, E78.5 - Hyperlipidemia, unspecified, I10 - Essential (primary) hypertension, M85.89 - Other specified disorders of bone density and structure, multiple sites, Z78.0 - Asymptomatic menopausal state Hemoglobin A1c 09/06/23 E11.65 - Type 2 diabetes mellitus with hyperglycemia, E78.5 - Hyperlipidemia, unspecified, I10 - Essential (primary) hypertension, M85.89 - Other specified disorders of bone density and structure, multiple sites, Z78.0 - Asymptomatic menopausal state Microalbumin, Random (w Creat) 09/06/23 E11.65 - Type 2 diabetes mellitus with hyperglycemia, E78.5 - Hyperlipidemia, unspecified, I10 - Essential (primary) hypertension, M85.89 - Other specified disorders of bone density and structure, multiple sites, Z78.0 - Asymptomatic menopausal state Vitamin D 25-OH Total 09/06/23 E11.65 - Type 2 diabetes mellitus with hyperglycemia, E78.5 - Hyperlipidemia, unspecified, I10 - Essential (primary) hypertension, M85.89 - Other specified disorders of bone density and structure, multiple sites, Z78.0 - Asymptomatic menopausal state Medications: Changed From empagliflozin 25 mg PO QAM 30 tabs 6RF E11.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 To empagliflozin 25 mg PO QAM 3 months 90 tabs 3RF E11.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 Refilled metformin 1,000 mg PO BID 90 days 180 tabs 4RF E11.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 Trulicity (dulaglutide) 0.75 mg (0.5 mL) subcut QWEEK 30 days 2.5 mL 5RF NS E11.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 atorvastatin 20 mg PO DAILY 90 tabs 3RF Coding Level of Care Code Est Pt Level 4 (12218) Diagnoses Type 2 diabetes mellitus with hyperglycemia, without long-term current use of insulin E11.65 Diabetes mellitus type: type 2 Essential hypertension I10 Hypertension type: essential hypertension Dyslipidemia E78.5 Additional Codes KIMBER-7 Assessment Billing - KIMBER-7 Assessment Tool: KIMBER-7 Assessment [id number] ([id number])
== END 2023-05-27 09:48 | disposition home or self-care (01) ==
PROVIDERS: PCP Internal Medicine; Visit Provider Internal Medicine
DX: E11.65 Type 2 diabetes mellitus with hyperglycemia (principal); I10 Essential (primary) hypertension; E78.5 Hyperlipidemia, unspecified
CPT/HCPCS: 99214

== ENCOUNTER 2023-06-05 09:57 | Outpatient (AMB) | payer MEDICARE, SELFPAY ==
[2023-06-05 10:51] VITALS: BP 130/68; PULSE 67; TEMP 36.1; O2SAT 99; BMI 34.2
--- NOTE | 2023-06-05 10:51 | MHC.OFFWIV ---
Intake Vital Signs 06/05/23 10:51 Height 5 ft 6 in Weight 212 lb BMI 34.2 BP 130/68 Blood Pressure Location Lt brachial Position Sitting Pulse 67 Pulse Source Pulse Oximeter Temp 97.0 F Pulse Oximetry (%) 99 Oxygen Delivery Method Room Air Intake Visit Reasons: EST/swollen LFT wrist(lobby) Intake Note: pt is here today for swollen lft wrist started thursday Patient Tobacco Use Status: Never used Tobacco Allergies No Known Allergies Allergy (Verified 06/05/23 10:54) Do you need a note to return to daycare/school/sports/work: No HPI HPI Comments History of Present Illness Details 73 y/o female presents to walk in clinic with c/o pain and swelling left wrist since Thursday. Denies trauma or injury. Denies numbness or tingling. [facility] Medical History History of adenomatous polyp of colon Osteoarthritis of right knee Tubular adenoma of colon Recurrent cold sores Osteopenia of multiple sites HTN (hypertension) Dyslipidemia Diabetes mellitus with hyperglycemia, without long-term current use of insulin Surgical History History of knee surgery History of tubal ligation Family History Father Colon cancer CVD (cardiovascular disease) HTN (hypertension) Mother Goiter Diabetes mellitus Sister No problems noted. Sister No problems noted. Sister No problems noted. Son Mental health disorder Son No problems noted. Social History Housing: House Alcohol intake: never Patient Tobacco Use Status: Never used Tobacco e-Cigarette/Vaping Use: Never Used Second Hand Smoke Exposure: No service: No Current occupational status: retired Cognitive needs: No Hearing needs: No Vision needs: Yes Review of Systems Const All systems reviewed & are unremarkable except as noted in HPI and below Physical Exam Vital Signs: Last Vital Signs Temp 97.0 F 06/05/23 10:51 Pulse 67 06/05/23 10:51 BP 130/68 06/05/23 10:51 Pulse Ox 99 06/05/23 10:51 Oxygen Delivery Method Room Air 06/05/23 10:51 BMI result Body Mass Index 34.2 Extrem Right upper extremity: normal to inspection, full ROM, normal capillary refill, no joint enlargement and wrist Details: normal to inspection and radial pulse present; no swelling; no edema Left upper extremity: normal to inspection, full ROM, normal capillary refill, no joint enlargement, wrist (Normal color, temperature, mild tenderness, pulses normal and strength equa) and hand Details: normal to inspection and normal capillary refill; no swelling; no edema Assessment & Plan Assessment & Plan (1) Osteoarthritis: Code(s): M19.90 - Unspecified osteoarthritis, unspecified site Qualifiers: Laterality: left Osteoarthritis location: wrist Osteoarthritis type: unspecified Qualified Code(s): M19.032 - Primary osteoarthritis, left wrist Plan: - RICE - Acetamino/Ibuprofe for pain control Medications: New ibuprofen 600 mg PO Q8H PRN 20 tabs 0RF pain M19.032 - Primary osteoarthritis, left wrist Coding Level of Care Code Est Pt Level 3 (75749) Diagnoses Osteoarthritis of left wrist, unspecified osteoarthritis type M19.032 Laterality: left Osteoarthritis location: wrist Osteoarthritis type: unspecified Time Spent (min) 15
== END 2023-06-05 11:53 | disposition home or self-care (01) ==
PROVIDERS: PCP Internal Medicine; Visit Provider Nurse Practitioner Family
DX: M19.032 Primary osteoarthritis, left wrist (principal)
CPT/HCPCS: 99213

== ENCOUNTER 2023-07-10 07:48 | Day surgery (SDC) | payer MEDICARE, SELFPAY ==
--- NOTE | 2023-07-09 10:01 | HO.ANESPROP2 ---
Documented by User: Jenny James NP 07/09/23 10:01 HPI - Anesthesia Eval Consult details Narrative: 73yo F for Colonoscopy Anesthesia Pre-Procedure Meds Is the patient on any of the following meds?: Dulaglutide (Trulicity) and Any other SGL-1 drugs or drugs that delay gastric emptying (Jardiance) PMFSH Active Problems Active Problems: All Active Problems (Updated 02/11/23 @ 14:26 by Marie Rees PA-C) Family history of colon cancer in father (Acute) History of adenomatous polyp of colon (Acute) Osteopenia of multiple sites (Acute) HTN (hypertension) (Acute) Dyslipidemia (Acute) Diabetes mellitus with hyperglycemia, without long-term current use of insulin (Acute) Osteoarthritis of right knee (Acute) Tubular adenoma of colon (Acute) Recurrent cold sores (Acute) Past Medical History Medical History History of adenomatous polyp of colon Osteoarthritis of right knee Tubular adenoma of colon Recurrent cold sores Osteopenia of multiple sites HTN (hypertension) Dyslipidemia Diabetes mellitus with hyperglycemia, without long-term current use of insulin Family History Family History Father Colon cancer CVD (cardiovascular disease) HTN (hypertension) Mother Goiter Diabetes mellitus Sister No problems noted. Sister No problems noted. Sister No problems noted. Son Mental health disorder Son No problems noted. Surgical History Surgical History History of knee surgery History of tubal ligation Social History Social History Housing: House Alcohol intake: never Patient Tobacco Use Status: Never used Tobacco e-Cigarette/Vaping Use: Never Used Second Hand Smoke Exposure: No Have you been hit, kicked, punched, or otherwise hurt by someone within the past year? If so, by whom?: No Are you DNR?: No Advance Directives: No Advance Directives Information Provided: Yes Recently lost weight without trying: No Eating poorly because of decreased appetite: No Nutrition Risks: No Nutritional Risk Patient : No service: No Current occupational status: retired Cognitive needs: No Hearing needs: No Vision needs: Yes Meds Allergies Allergy/AdvReac Type Severity Reaction Status Date / Time No Known Allergies Allergy Verified 06/05/23 10:54 Assessment and Plan Assessment Anesthesia Assessment: Chart Reviewed Documented by User: Marianela Felipe MD 07/10/23 09:19 HPI - Anesthesia Eval Anesthesia Pre-Procedure Meds If Yes to any meds - educate patient: Pt education - increased risk of aspiration PMFSH Active Problems Active Problems: All Active Problems (Updated 07/10/23 @ 09:04 by Marianela Felipe MD) Family history of colon cancer in father (Acute) History of adenomatous polyp of colon (Acute) Osteopenia of multiple sites (Acute) HTN (hypertension) (Acute) Dyslipidemia (Acute) Diabetes mellitus with hyperglycemia, without long-term current use of insulin (Acute) Osteoarthritis of right knee (Acute) Tubular adenoma of colon (Acute) Recurrent cold sores (Acute) Denies GI Past Medical History Medical History History of adenomatous polyp of colon Osteoarthritis of right knee Tubular adenoma of colon Recurrent cold sores Osteopenia of multiple sites HTN (hypertension) Dyslipidemia Diabetes mellitus with hyperglycemia, without long-term current use of insulin Family History Family History Father Colon cancer CVD (cardiovascular disease) HTN (hypertension) Mother Goiter Diabetes mellitus Sister No problems noted. Sister No problems noted. Sister No problems noted. Son Mental health disorder Son No problems noted. Family history of problems with anesthesia: No Surgical History Surgical History History of knee surgery History of tubal ligation History of Problems with Anesthesia: No Social History Social History Housing: House Alcohol intake: never Patient Tobacco Use Status: Never used Tobacco e-Cigarette/Vaping Use: Never Used Second Hand Smoke Exposure: No Have you been hit, kicked, punched, or otherwise hurt by someone within the past year? If so, by whom?: No Are you DNR?: No Advance Directives: No Advance Directives Information Provided: Yes Recently lost weight without trying: No Eating poorly because of decreased appetite: No Nutrition Risks: No Nutritional Risk Patient : No service: No Current occupational status: retired Cognitive needs: No Hearing needs: No Vision needs: Yes Meds Allergies Allergy/AdvReac Type Severity Reaction Status Date / Time No Known Allergies Allergy Verified 06/05/23 10:54 Exam Height,Weight and Vital Signs: Height 5 ft 6 in Weight 90.718 kg Vital Signs Temp Pulse Resp BP Pulse Ox O2 Del Method 07/10/23 08:53 98.1 F 58 18 138/71 96 Room Air Pertinent Lab Results Pertinent Lab Results: POC 138 Airway Mallampati Class: II TM Dist: >3cm Neck ROM: Full Loose/Missing/Broken Teeth: No (Denies broken, loose, missing teeth) Heart: RRR Lungs: CTAB Assessment and Plan Assessment Anesthesia Assessment: Anesthesia Plan Discussed and Chart Reviewed Final Anesthetic Review Family History of Problems with Anesthesia: No History of Problems with Anesthesia: No NPO: Yes ASA Class: II Final Preanesthetic Review: No Changes in Pt Med Stat, Meds/Allgs Chart Reviewed, Consent Obtained/Reviewed and Anes Risks/Benef Reviewed Patient Risk: Intermediate Procedure Risk: Low Assessment/Block/Sedation in SS: Assess/Block/Sedation-SS Anesthetic Plan Anesthetic Plan: MAC: and TIVA Disposition: Standard PACU
--- NOTE | 2023-07-10 08:23 | MHC.SHP ---
Pre-Procedural Eval Section A - 24 Hr Update-Section A only Date of Service: 07/10/23 The patient is an INPATIENT: No The patient has been examined within 24 hours of the surgical procedure. The History & Physical has been completed within 30 days and I have reviewed it.: No Section B - Complete if H&P > 30 days Chief Complaint: Surveillance for colon polyps, FH of colon cancer Relevant Family History (Specify if Yes): Yes Relevant Social History: None Present Medications: see Short Stay Collaborative assessment Medical History: Significant History (History of adenomatous polyp of colon Osteoarthritis of right knee Tubular adenoma of colon Recurrent cold sores Osteopenia of multiple sites HTN (hypertension) Dyslipidemia Diabetes mellitus ) History of Previous Operations: Relevant previous surgery/procedure and date(s) (History of knee surgery History of tubal ligation) Allergies: Allergies Allergy/AdvReac Type Severity Reaction Status Date / Time No Known Allergies Allergy Verified 06/05/23 10:54 Review of Systems Sugical H&P ROS: Negative: Constitution, Cardiovascular, Respiratory and Gastrointestinal Exam Surgical H&P Exam: Normal: Heart, Normal: Lungs, Normal: Extremities and Normal: Abdomen Plan Diagnosis/Plan: Unchanged I have reviewed the history and physical and performed a pertinent physical examination on my patient. No changes have occurred unless specified. Time Spent With Patient Time: Total time managing care of this patient today ____ minutes.
[2023-07-10 08:53] VITALS: BP 138/71; PULSE 58; RESP 18; TEMP 36.7; O2SAT 96; BMI 32.3
[2023-07-10 09:27] LABS: Glucose, Whole Blood 138 mg/dL (60-115)
--- NOTE | 2023-07-10 10:11 | P.OP_ITS ---
Operative Note Operative Note Date of Service: 07/10/23 Narrative: COLONOSCOPY TILL CECUM WITH SNARE POLYPECTOMY Pre-op diagnosis: Surveillance for colon polyps, family history of colon cancer. Post-op diagnosis:? Colon polyps, hemorrhoids Endoscopist:? Sarmad You MD Anesthesia:?MAC Consent: Indications for the procedure and potential complications of bleeding, perforation, reaction to medications and missed diagnosis were discussed with the patient and informed consent was obtained. Instrument: Olympus PCF H 190 L variable stiffness pediatric colonoscope Monitoring: Vital signs and clinical assessment, intermittent blood pressure monitoring, continuous EKG monitoring, Pulse oximetry and Carbon Dioxide monitoring were done throughout the procedure. Please see anesthesia flowsheet. Colon withdrawl time was 23 minutes. Procedure: The patient was placed in the left lateral decubitis position and pre-procedure medications were administered. After a digital rectal examination of the ano-rectum, the video colonoscope was inserted into the rectum and advanced through the colon to the cecum. The colonoscope was slowly withdrawn in a retrograde panoramic fashion and the colon mucosa was carefully examined including a retroflexed view of the rectum. Findings and interventions are described below. Procedure Difficulty: Colon was long, redundant and tortuous and there was recurrent loop formation. Patient was placed in the supine position followed by the right lateral decubitus position and LLQ pressure was applied to intubate the cecum Findings: Terminal Ileum: Not evaluated Cecum: Normal Ascending Colon: A 12-15 mm sessile polyp in the proximal AC overlying the ICV - removed with a hot snare. Two 10 - 12 mm sessile polyp in the mid and distal AC - removed with a hot snare Transverse Colon: A 12 - 15 mm sessile polyp in the mid TC - removed with a hot snare Descending Colon: Normal Sigmoid Colon: Normal Rectum: Normal Ano-rectum: Small internal hemorrhoids Colon preparation: Good after some irrigation. [place] Bowel Preparation Scale Right colon; 2 Transverse colon: 2 Left colon; 2 (0 = Unprepared colon segment with mucosa not seen due to solid stool that cannot be cleared. 1 = Portion of mucosa of the colon segment seen, but other areas of the colon segment not well seen due to staining, residual stool and/or opaque liquid. 2 = Minor amount of residual staining, small fragments of stool and/or opaque liquid, but mucosa of colon segment seen well. 3 = Entire mucosa of colon segment seen well with no residual staining, small fragments of stool or opaque liquid) Impression and Post Procedure Diagnosis: Colonoscopy Findings: Four medium sized polyps were removed small hemorrhoids on retroflexed exam. Plan: Pt has a FU appointment on 07/23/23 with NALLELY Diana Repeat Colonoscopy in 3 years if polyps are adenomatous and due to a history of adenomatous colon polyps. (adult colonoscope for future colonoscopies) Above findings were reviewed with the patient and relevant handouts were given and the discharge area.
[2023-07-10 10:13] VITALS: BP 109/53; PULSE 53; RESP 16; TEMP 36.2; O2SAT 98
[2023-07-10 10:28] VITALS: BP 116/63; PULSE 54; RESP 16; TEMP 36.2; O2SAT 99
== END 2023-07-10 11:10 | disposition home or self-care (01) ==
PROVIDERS: PCP Internal Medicine; Visit Provider Internal Medicine Gastroenterology
PROC: 0DJD8ZZ Inspection of Lower Intestinal Tract, Via Natural or Artificial Opening Endoscopic (ICD-10-PCS; CPT 45378; principal; 2023-07-10 09:20)
DX: Z12.11 Encounter for screening for malignant neoplasm of colon (principal); Z86.010 Personal history of colon polyps; Z80.0 Family history of malignant neoplasm of digestive organs; D12.2 Benign neoplasm of ascending colon; D12.3 Benign neoplasm of transverse colon; K64.8 Other hemorrhoids; I10 Essential (primary) hypertension; E78.5 Hyperlipidemia, unspecified; E11.65 Type 2 diabetes mellitus with hyperglycemia; Z79.84 Long term (current) use of oral hypoglycemic drugs; Z79.85 Long-term (current) use of injectable non-insulin antidiabetic drugs; Z79.899 Other long term (current) drug therapy
CPT/HCPCS: 45385; 82947; 88305; J2704

== ENCOUNTER → 2023-07-10 07:48 | Outpatient (BNV) | payer MEDICARE, SELFPAY | PROVIDERS: PCP Internal Medicine; Visit Provider Internal Medicine Gastroenterology | DX: Z12.11 Encounter for screening for malignant neoplasm of colon (principal); Z80.0 Family history of malignant neoplasm of digestive organs; D12.2 Benign neoplasm of ascending colon; D12.3 Benign neoplasm of transverse colon; K64.8 Other hemorrhoids | CPT/HCPCS: 45385 ==

== ENCOUNTER 2023-07-23 10:03 | Outpatient (AMB) | payer MEDICARE, SELFPAY ==
--- NOTE | 2023-07-23 10:08 | MHC.OFFVIS ---
Intake Vital Signs 07/23/23 10:12 Height 5 ft 6 in Weight 207 lb 3.752 oz BMI 33.4 BP 133/62 Blood Pressure Location Lt brachial Position Sitting Pulse 64 Intake Visit Reasons: s/p colon Intake Note: Criss presents in the office as a follow up colonoscopy. CC: no concerns just here for results Allergies No Known Allergies Allergy (Verified 07/23/23 10:12) HPI HPI Comments History of Present Illness Details A 73 y/o female-colonoscopy with polypectomy- 4 adenomas hemorrhoids Tolerated procedure well No GI complaints Reviewed procedure report, pathology recommendation [facility] Medical History (Updated 07/24/23 @ 21:12 by Marie Rees PA-C) History of adenomatous polyp of colon Osteoarthritis of right knee Tubular adenoma of colon Recurrent cold sores Osteopenia of multiple sites HTN (hypertension) Dyslipidemia Diabetes mellitus with hyperglycemia, without long-term current use of insulin Surgical History Hx of colonoscopy History of knee surgery History of tubal ligation Family History Father Colon cancer CVD (cardiovascular disease) HTN (hypertension) Mother Goiter Diabetes mellitus Sister No problems noted. Sister No problems noted. Sister No problems noted. Son Mental health disorder Son No problems noted. Social History Housing: House Alcohol intake: never Patient Tobacco Use Status: Never used Tobacco e-Cigarette/Vaping Use: Never Used Second Hand Smoke Exposure: No service: No Current occupational status: retired Cognitive needs: No Hearing needs: No Vision needs: Yes Review of Systems Const All systems reviewed & are unremarkable except as noted in HPI and below Physical Exam Vital Signs: Last Vital Signs Pulse 64 07/23/23 10:12 BP 133/62 07/23/23 10:12 BMI result Body Mass Index 33.4 Const General: cooperative, healthy appearing, comfortable and no acute distress Orientation/consciousness: patient oriented x3 Limitations: no limitations Neuro General: patient oriented x3 Psych Appearance: grossly normal and well kempt Mental Status: mental status grossly normal Speech and movement: Normal speech and movement present and Clear speech present Affect: normal affect Attitude: cooperative Thought process: Normal thought process present Thought content: Normal thought content present Results Reviewed Results Reviewed: pression and Post Procedure Diagnosis: Colonoscopy Findings: Four medium sized polyps were removed small hemorrhoids on retroflexed exam. Plan: Pt has a FU appointment on 07/23/23 with NALLELY Diana Repeat Colonoscopy in 3 years if polyps are adenomatous and due to a history of adenomatous colon polyps. (adult colonoscope for future colonoscopies) Above findings were reviewed with the patient and relevant handouts were given and the discharge area. riley: Criss Geller Age/Sex: 73/F Attending: Sarmad You MD : 1950 Submitted by: Sarmad You MD Copies to: Jayleen Mujica MD MR #: [id number] Status: [facility] Collected: 07/10/23 Location: [facility] Received: 07/10/23 Diagnosis A. Colon, ascending, polyps: Tubular adenomas (multiple pieces); negative for high-grade dysplasia and carcinoma. B. Colon, transverse, polyp: Tubular adenoma; negative for high-grade dysplasia and carcinoma. Clinical History Pre-Op Dx: Screening Post-Op Dx: Colon polyps and hemorrhoids Microscopic Description Microscopic sections reviewed. Material Received A. Ascending colon polyps B. Transverse colon polyp Gross Description Received in 2 parts. Part A: Received in formalin labeled ?ascending colon polyp (sic)? are several welsh-white and welsh-pink irregular and papular tissue fragments ranging from 0.1 to 0.35 cm, submitted in toto in a cassette labeled A. Part B: Received in formalin labeled ?transverse colon polyp? are 2 welsh-white and welsh-pink irregular tissue fragments each measuring 0.3 cm, submitted in toto in a cassette labeled B. CEDS Copies To Jayleen Mujica MD [address] [place] [address] Sarmad You MD [address] [place] [address] Patient: Criss Geller Age/Sex: 73/F MR#: [id number] Page 1 of 2 Assessment & Plan Assessment & Plan (1) History of adenomatous polyp of colon: Code(s): Z86.010 - Personal history of colonic polyps Plan: continue to monitor (2) Family history of colon cancer in father: Code(s): Z80.0 - Family history of malignant neoplasm of digestive organs (3) Hemorrhoids: Code(s): K64.9 - Unspecified hemorrhoids Plan: Avoid straining Maintain high-fiber diet Plan 3 year repeat- Patient Instructions: Repeat asymptomatic colonoscopy 3 years Avoid straining with hemorrhoid Maintain high-fiber diet May use rectal cream Encouraged to call questions or concerns Coding Level of Care Code Est Pt Level 3 (38538) Diagnoses History of adenomatous polyp of colon Z86.010 Family history of colon cancer in father Z80.0 Hemorrhoids K64.9 Time Spent (min) 20
[2023-07-23 10:12] VITALS: BP 133/62; PULSE 64; BMI 33.4
== END 2023-07-23 10:53 | disposition home or self-care (01) ==
PROVIDERS: PCP Internal Medicine; Visit Provider Physician Assistant
DX: D12.3 Benign neoplasm of transverse colon (principal); D12.2 Benign neoplasm of ascending colon; K64.9 Unspecified hemorrhoids; Z80.0 Family history of malignant neoplasm of digestive organs
CPT/HCPCS: 99213

== ENCOUNTER → 2023-07-23 10:03 | Outpatient (BNVA) | payer MEDICARE, SELFPAY | PROVIDERS: PCP Internal Medicine; Visit Provider Physician Assistant | DX: K64.9 Unspecified hemorrhoids (principal); Z80.0 Family history of malignant neoplasm of digestive organs; Z86.010 Personal history of colon polyps | CPT/HCPCS: 99212 ==

== ENCOUNTER 2023-09-25 10:12 | Outpatient (REF) | payer MEDICARE, SELFPAY ==
[2023-09-25 13:37] LABS: Estimated Average Glucose 177 mg/dL; Hemoglobin A1c % 7.8 % (<6.0)
[2023-09-25 13:38] LABS: Creatinine Urine 81.25 mg/dL; Microalbum/Creatinine Ratio Ur 33.2 ug/mg cr (<30)
[2023-09-25 13:46] LABS: Alanine Aminotransferase 14 U/L (0-31); Anion Gap 19 (12-20); Aspartate Amino Transferase 20 U/L (5-31); Blood Urea Nitrogen 20 mg/dL (9-16); Calcium 10.6 mg/dL (8.4-10.2); Carbon Dioxide 23 mmol/L (22-29); Chloride 104 mmol/L (96-108); Cholesterol 158 mg/dL (<200); Estimated Glomerular Filt Rate > 60; Glucose Fasting 116 mg/dL (60-99); HDL Cholesterol 48 mg/dL (>40); LDL Cholesterol Calculated 83 mg/dL (<100); Potassium 4.9 mmol/L (3.3-5.1); Sodium 141 mmol/L (135-145); Triglycerides 135 mg/dL (<150)
== END 2023-09-25 10:13 | disposition home or self-care (01) ==
LOC: HO.HMGCLDS 10:12
PROVIDERS: PCP Internal Medicine; Visit Provider Internal Medicine
DX: M85.89 Other specified disorders of bone density and structure, multiple sites (principal); I10 Essential (primary) hypertension; E78.5 Hyperlipidemia, unspecified; E11.65 Type 2 diabetes mellitus with hyperglycemia; Z78.0 Asymptomatic menopausal state
CPT/HCPCS: 36415; 80048; 80061; 82043; 82306; 82570; 83036; 84450; 84460

== ENCOUNTER 2023-10-02 09:38 | Outpatient (AMB) | payer MEDICARE, SELFPAY ==
--- NOTE | 2023-10-02 10:11 | MHC.PC.OV ---
Intake Visit Reasons: 4 month f/u Iphone [phone] Allergies No Known Allergies Allergy (Verified 10/02/23 10:14) Medication List - Last Reconciled 10/02/23 by Jayleen Mujica MD atorvastatin 20 mg PO DAILY BD Ultra-Fine Short Pen Needle (pen needle, diabetic) administer 10 units subcutaneous at bedtime NS blood sugar diagnostic ([employer] Verio test strips) Check blood sugar 3 times a day before meals calcium carbonate-vit D3-min 600 mg calcium- 400 unit 1 tab PO BID empagliflozin 25 mg PO QAM 3 months ibuprofen 600 mg PO Q8H PRN lisinopril 5 mg PO DAILY metformin 1,000 mg PO BID 90 days Trulicity (dulaglutide) 0.75 mg (0.5 mL) subcut QWEEK 3 months NS Tobacco use date assessed: 05/27/23 Dental Screening Dental Screen Date: 05/27/23 HPI 4 month f/u Iphone [phone] HPI Details 73-year-old lady with hyper lipidemia, hypertension, and diabetes mellitus, here today for her follow-up. She has been taking her medicines as directed, currently on metformin a 1000 mg twice a day, Trulicity 0.75 weekly and Jardiance 25 mg in the morning. Addition to lisinopril 5 mg daily for hypertension control and atorvastatin 20 mg daily for her hyperlipidemia. She also has been following recommended diet and has started walking again for exercise. Requesting to have her thyroid levels checked as well, as her sister has been diagnosed to have thyroid disorder, she has not sure whether it is hypo or hyperthyroid. Patient states however that she has been feeling well with no complaints at present time [facility] Medical History Family history of thyroid disease in sister History of adenomatous polyp of colon Osteoarthritis of right knee Tubular adenoma of colon Recurrent cold sores Osteopenia of multiple sites HTN (hypertension) Dyslipidemia Diabetes mellitus with hyperglycemia, without long-term current use of insulin Surgical History Hx of colonoscopy History of knee surgery History of tubal ligation Family History Father Colon cancer CVD (cardiovascular disease) HTN (hypertension) Mother Goiter Diabetes mellitus Sister No problems noted. Sister No problems noted. Sister No problems noted. Son Mental health disorder Son No problems noted. Social History Housing: House Alcohol intake: never Patient Tobacco Use Status: Never used Tobacco e-Cigarette/Vaping Use: Never Used Second Hand Smoke Exposure: No service: No Current occupational status: retired Cognitive needs: No Hearing needs: No Vision needs: Yes Questionnaire Thrive Questionnaire Date Thrive assessed: 05/27/23 KIMBER-7 AMB Questionnaire KIMBER-7 Date KIMBER - 7 assessed: 05/27/23 Source: Developed by Drs. Rodger Harrington, Sharon Oneil, Aris Ojeda and colleagues, with an educational cassy from [employer]. Review of Systems Const Denies body aches, Denies difficulty sleeping, Denies fatigue, Denies headache(s) and Denies malaise Eyes Details: Up-to-date with her retinopathy screening, sees [facility] , due 05/2023 Denies change in vision and Reports requires corrective lenses ENT Denies dizziness, Denies headache(s), Denies nasal congestion and Denies sore throat Card Denies chest pain, Denies lightheadedness, Denies palpitations and Denies dyspnea Resp Denies chest congestion, Denies cough and Denies dyspnea GI Denies abdominal pain, Denies change in bowel habits and Denies heartburn Denies urinary frequency, Denies dysuria and Denies urinary urgency Musc Denies joint swelling, Reports stiffness and Denies tingling Neuro Denies dizziness, Denies headache(s) and Denies tingling Endo Denies fatigue, Denies polydipsia, Denies polyuria and Denies palpitations Aller/Immun Reports no additional complaints Physical exam (Primary Care) Tobacco/Smoking Status: Tobacco use Status Tobacco use date assessed 05/27/23 10/02/23 10:11 Patient Tobacco Use Status Never used Tobacco 10/02/23 10:11 e-Cigarette/Vaping Use Never Used 10/02/23 10:11 Thrive Assessment: Date of Thrive Assessment Date Thrive assessed 05/27/23 10/02/23 10:11 Telehealth Telehealth Telehealth Platform: [facility] Location of provider rendering services: practice address Location of patient: address on file Patient Identification confirmed using: Name, : Yes Telehealth method: video Patient verbally consented to treatment: Yes Patient verbally consented to billing insurance company: Yes Patient informed of any privacy concerns related to visit: Yes Minutes spent on Phone/Video with Pt.: 15 Results Reviewed Results Reviewed: Laboratory Tests 04/15/23 09/25/23 08:25 10:18 Estimat Average Glucose 278 177 Hemoglobin A1c % 11.3 H 7.8 H Name: Criss Geller Age/Sex: 73/F : 1950 Unit#: [id number] Attend Dr: Jayleen Mujica MD Re09/25/23 Status: DEP REF Location: [facility] Disch: SPEC : [id number] JENNA: 09/25/23-1018 STATUS: COMP REQ : [id number] RECD: 09/25/23-[address]: Jayleen Mujica MD COMP: 09/25/23-1400 ENTERED: 09/25/23-[address]: ORDERED: Met Prof Fast, AST, ALT, Lipid Panel, Vitamin D 25-OH Test Result Flag Reference Sodium 141 135-145 mmol/L Potassium 4.9 3.3-5.1 mmol/L CL 104 96-108 mmol/L CO2 23 22-29 mmol/L Gap 19 12-20 BUN 20 H 9-16 mg/dL Creat 0.82 0.5-1.4 mg/dL EGFR > 60 NOTE: For -[place] Citizen individuals, multiply the result by 1.210. Chronic Kidney Disease: Estimated GFR < 60 mL/min/1.73m2 Severe Kidney Disease: Estimated GFR < 15 mL/min/1.73m2 FBS 116 H 60-99 mg/dL A fasting glucose from 100-125 mg/dl is considered impaired (pre-diabetes). CA 10.6 # H 8.4-10.2 mg/dL AST (GOT) 20 5-31 U/L ALT (GPT) 14 0-31 U/L Triglyceride 135 <150 mg/dL Desirable Triglyceride: less than 150 mg/dL Borderline High Triglyceride 150-199 mg/dL High Triglyceride: 200-499 mg/dL Very High Triglyceride: greater than or equal to 5OO mg/dL Cholesterol 158 <200 mg/dL Desirable Cholesterol: less than 200 mg/dL Borderline High Cholesterol: 200-239 mg/dL High Cholesterol: greater than 239 mg/dL LDL Calculated 83 <100 mg/dL Desirable LDL: less than 100 mg/dL Near Optimal/Above Optimal LDL: 110-129 mg/dL Borderline High LDL: 130-159 mg/dL High LDL: 160-189 mg/dL Very High LDL: greater than or equal to 190 mg/dL HDL 48 >40 mg/dL Desirable HDL: greater than 40 mg/dL Note: This HDL assay may give artificially low results in patients with liver disease. Vit D 25-OH Tot 52.0 >30 ng/mL Health Based Reference Values* < 20 ng/mL Deficient 20-30 ng/mL Insufficient > 30 ng/mL Sufficient Assessment and Plan Assessment & Plan (1) Diabetes mellitus with hyperglycemia, without long-term current use of insulin: Code(s): E11.65 - Type 2 diabetes mellitus with hyperglycemia Qualifiers: Diabetes mellitus type: type 2 Qualified Code(s): E11.65 - Type 2 diabetes mellitus with hyperglycemia Plan: Hemoglobin A1c now much improved at 7.6% compared to last check. Goal however still to go less than 6.5%. Patient wants to continue with same medications namely Trulicity, metformin and Jardiance, does not want to go higher on the dose on the Trulicity, and would like to try moving her diabetes control through diet and exercise together with the medications. See her back in 4 months for follow after fasting labs (2) Dyslipidemia: Code(s): E78.5 - Hyperlipidemia, unspecified Plan: Reviewed recent fasting lipid profile with patient with elevated triglyceride levels but normal LDL cholesterol. Continue atorvastatin 20 mg daily , in addition to adherence to low-cholesterol diet and regular exercise, at least 30 minutes 3 to 4 times a week. Advised patient to make healthy food choices, eat more fruits, vegetables, whole grains, wild caught fish and low-fat dairy. Limit amount of meat and fried or fatty food products, as well as processed foods and fast foods. Follow-up scheduled with repeat fasting lipid panel in 4 months. (3) Family history of thyroid disease in sister: Code(s): Z83.49 - Family history of other endocrine, nutritional and metabolic diseases Plan: Will check TSH with free T4 on next lab draw (4) Loss of hair: Code(s): L65.9 - Nonscarring hair loss, unspecified Plan: Will check TSH with free T4, CBC (5) Hypercalcemia: Code(s): E83.52 - Hypercalcemia Plan: Patient advised to stop taking her calcium plus vitamin-D 3 supplements which he takes twice a day, will recheck another serum calcium and ionized calcium level in 4 months next visit Orders: Orders Alanine Aminotransferase 01/19/24 D12.6 - Benign neoplasm of colon, unspecified, E11.65 - Type 2 diabetes mellitus with hyperglycemia, E78.5 - Hyperlipidemia, unspecified, I10 - Essential (primary) hypertension, K64.9 - Unspecified hemorrhoids, L65.9 - Nonscarring hair loss, unspecified, Z83.49 - Family history of other endocrine, nutritional and metabolic diseases Calcium, Ionized 01/19/24 D12.6 - Benign neoplasm of colon, unspecified, E11.65 - Type 2 diabetes mellitus with hyperglycemia, E78.5 - Hyperlipidemia, unspecified, I10 - Essential (primary) hypertension, K64.9 - Unspecified hemorrhoids, L65.9 - Nonscarring hair loss, unspecified, Z83.49 - Family history of other endocrine, nutritional and metabolic diseases Lipid Panel 01/19/24 D12.6 - Benign neoplasm of colon, unspecified, E11.65 - Type 2 diabetes mellitus with hyperglycemia, E78.5 - Hyperlipidemia, unspecified, I10 - Essential (primary) hypertension, K64.9 - Unspecified hemorrhoids, L65.9 - Nonscarring hair loss, unspecified, Z83.49 - Family history of other endocrine, nutritional and metabolic diseases Aspartate Amino Transferase 01/19/24 D12.6 - Benign neoplasm of colon, unspecified, E11.65 - Type 2 diabetes mellitus with hyperglycemia, E78.5 - Hyperlipidemia, unspecified, I10 - Essential (primary) hypertension, K64.9 - Unspecified hemorrhoids, L65.9 - Nonscarring hair loss, unspecified, Z83.49 - Family history of other endocrine, nutritional and metabolic diseases Basic Metabolic Panel Fasting 01/19/24 D12.6 - Benign neoplasm of colon, unspecified, E11.65 - Type 2 diabetes mellitus with hyperglycemia, E78.5 - Hyperlipidemia, unspecified, I10 - Essential (primary) hypertension, K64.9 - Unspecified hemorrhoids, L65.9 - Nonscarring hair loss, unspecified, Z83.49 - Family history of other endocrine, nutritional and metabolic diseases TSH reflex Free T4 01/19/24 D12.6 - Benign neoplasm of colon, unspecified, E11.65 - Type 2 diabetes mellitus with hyperglycemia, E78.5 - Hyperlipidemia, unspecified, I10 - Essential (primary) hypertension, K64.9 - Unspecified hemorrhoids, L65.9 - Nonscarring hair loss, unspecified, Z83.49 - Family history of other endocrine, nutritional and metabolic diseases Complete Blood Count Auto Diff 01/19/24 D12.6 - Benign neoplasm of colon, unspecified, E11.65 - Type 2 diabetes mellitus with hyperglycemia, E78.5 - Hyperlipidemia, unspecified, I10 - Essential (primary) hypertension, K64.9 - Unspecified hemorrhoids, L65.9 - Nonscarring hair loss, unspecified, Z83.49 - Family history of other endocrine, nutritional and metabolic diseases Coding Level of Care Code Tele Est Pt Level 4 (46325) Complex EM visit Add On G2211 Diagnoses Type 2 diabetes mellitus with hyperglycemia, without long-term current use of insulin E11.65 Diabetes mellitus type: type 2 Dyslipidemia E78.5 Family history of thyroid disease in sister Z83.49 Loss of hair L65.9 Hypercalcemia E83.52
== END 2023-10-02 12:24 | disposition home or self-care (01) ==
LOC: HO.HMGC 09:38
PROVIDERS: PCP Internal Medicine; Visit Provider Internal Medicine
DX: E11.65 Type 2 diabetes mellitus with hyperglycemia (principal); E78.5 Hyperlipidemia, unspecified; Z83.49 Family history of other endocrine, nutritional and metabolic diseases; L65.9 Nonscarring hair loss, unspecified; E83.52 Hypercalcemia
CPT/HCPCS: 99214; G2211

== ENCOUNTER 2023-11-24 12:11 | Outpatient (AMB) | payer MEDICARE, SELFPAY ==
--- NOTE | 2023-11-24 12:35 | AM.OFFWIN_ITS ---
Intake Vital Signs 11/24/23 12:38 Height 5 ft 6 in Weight 207 lb BMI 33.4 BP 126/78 Blood Pressure Location Lt brachial Position Sitting Pulse 66 Pulse Source Pulse Oximeter Temp 97.9 F Temp Source Oral Pulse Oximetry (%) 97 Intake Visit Reasons: EP Infected Foot Intake Note: pt is here for possible infection on left foot, behind ankle. patient had stitches and they were removed and thinks its infected now Patient Tobacco Use Status: Never used Tobacco Allergies No Known Allergies Allergy (Verified 11/24/23 13:26) Medication List - Last Reconciled 11/24/23 by Robson Vargas MD atorvastatin 20 mg PO DAILY BD Ultra-Fine Short Pen Needle (pen needle, diabetic) administer 10 units subcutaneous at bedtime NS blood sugar diagnostic ([employer] Verio test strips) Check blood sugar 3 times a day before meals calcium carbonate-vit D3-min 600 mg calcium- 400 unit 1 tab PO BID empagliflozin 25 mg PO QAM 3 months ibuprofen 600 mg PO Q8H PRN lisinopril 5 mg PO DAILY metformin 1,000 mg PO BID 90 days Trulicity (dulaglutide) 0.75 mg (0.5 mL) subcut QWEEK 3 months NS Do you need a note to return to daycare/school/sports/work: No HPI EP Infected Foot HPI Details 73-[facility]. Patient suffered a wound in [place] on October 28. The wound was stitched. Subsequently she had the wound examined at another walk-in center, she was treated for cellulitis with antibiotics. Patient was referred back here. [facility] Medical History Family history of thyroid disease in sister History of adenomatous polyp of colon Osteoarthritis of right knee Tubular adenoma of colon Recurrent cold sores Osteopenia of multiple sites HTN (hypertension) Dyslipidemia Diabetes mellitus with hyperglycemia, without long-term current use of insulin Surgical History Hx of colonoscopy History of knee surgery History of tubal ligation Family History Father Colon cancer CVD (cardiovascular disease) HTN (hypertension) Mother Goiter Diabetes mellitus Sister No problems noted. Sister No problems noted. Sister No problems noted. Son Mental health disorder Son No problems noted. Social History Housing: House Alcohol intake: never Patient Tobacco Use Status: Never used Tobacco e-Cigarette/Vaping Use: Never Used Second Hand Smoke Exposure: No service: No Current occupational status: retired Cognitive needs: No Hearing needs: No Vision needs: Yes Physical Exam Vital Signs: Last Vital Signs Temp 97.9 F 11/24/23 12:38 Pulse 66 11/24/23 12:38 BP 126/78 11/24/23 12:38 Pulse Ox 97 11/24/23 12:38 BMI result Body Mass Index 33.4 Extrem Other: Foot: The wound has opened up. Mild erythema around the edges. No discharge. Assessment & Plan Assessment & Plan (1) Open wound of foot: Code(s): S91.309A - Unspecified open wound, unspecified foot, initial encounter Plan: Wound as to heal by secondary intention. Patient is diabetic. A1c around 8. She would benefit from an evaluation at [facility] Coding Level of Care Code Est Pt Level 3 (95236) Diagnoses Open wound of foot S91.309A
[2023-11-24 12:38] VITALS: BP 126/78; PULSE 66; TEMP 36.6; O2SAT 97; BMI 33.4
== END 2023-11-24 13:54 | disposition home or self-care (01) ==
PROVIDERS: PCP Internal Medicine; Visit Provider Internal Medicine
DX: S91.309A Unspecified open wound, unspecified foot, initial encounter (principal)
CPT/HCPCS: 99213

== ENCOUNTER 2023-12-31 07:55 | Outpatient (REF) | payer MEDICARE, SELFPAY ==
[2023-12-31 10:05] LABS: MANUAL DIFF FLAG NO
[2023-12-31 10:42] LABS: Basophils Percent Auto 0.4 % (0-2); Eosinophils Absolute Auto 0.4 X10*3/uL (0.0-0.4); Eosinophils Percent Auto 5.3 % (0-4); Hematocrit 44.5 % (37.0-47.0); Hemoglobin 14.8 g/dl (12.0-16.0); Imm Gran Abs Auto 0.01 X10*3/uL (0.00-0.03); Imm Gran Pct Auto 0.1 % (0.0-0.4); Lymphocytes Absolute Auto 3.1 X10*3/uL (1.2-4.9); Mean Corpuscular HGB Conc 33.3 g/dl (31.0-35.0); Mean Corpuscular Hemoglobin 29.3 pg (27.0-33.0); Mean Corpuscular Volume 88.1 fL (80.0-98.0); Mean Platelet Volume 10.2 fL (9.4-12.3); Monocytes Absolute Auto 0.5 X10*3/uL (0.1-1.2); Monocytes Percent Auto 6.4 % (2-11); Neutrophils Absolute Auto 3.2 x10*3/uL (2.0-8.3); Neutrophils Percent Auto 44.8 % (45-73); Platelet Count 404 X10*3/uL (160-400); Red Blood Count 5.05 X10*6/uL (4.20-5.50); Red Cell Distribution Width 12.7 % (11.0-16.0); White Blood Count 7.2 X10*3/uL (4.8-10.8)
[2023-12-31 10:44] LABS: Alanine Aminotransferase 14 U/L (0-31); Anion Gap 16 (12-20); Aspartate Amino Transferase 17 U/L (5-31); Blood Urea Nitrogen 21 mg/dL (9-16); Carbon Dioxide 23 mmol/L (22-29); Chloride 104 mmol/L (96-108); Cholesterol 189 mg/dL (<200); Estimated Glomerular Filt Rate 55; Glucose Fasting 126 mg/dL (60-99); HDL Cholesterol 52 mg/dL (>40); LDL Cholesterol Calculated 106 mg/dL (<100); Potassium 4.4 mmol/L (3.3-5.1); Sodium 139 mmol/L (135-145); Triglycerides 157 mg/dL (<150)
[2024-01-04 18:58] LABS: Calcium, Ionized 5.1 mg/dL (4.7-5.5)
== END 2023-12-31 07:56 | disposition home or self-care (01) ==
LOC: HO.HMGCLDS 07:55
PROVIDERS: PCP Internal Medicine; Visit Provider Internal Medicine
DX: L65.9 Nonscarring hair loss, unspecified (principal); Z83.49 Family history of other endocrine, nutritional and metabolic diseases; I10 Essential (primary) hypertension; E78.5 Hyperlipidemia, unspecified; E11.65 Type 2 diabetes mellitus with hyperglycemia; D12.6 Benign neoplasm of colon, unspecified; K64.9 Unspecified hemorrhoids
CPT/HCPCS: 36415; 80048; 80061; 82330; 84443; 84450; 84460; 85025

== ENCOUNTER 2024-01-05 10:58 | Outpatient (AMB) | payer MEDICARE, SELFPAY ==
--- NOTE | 2024-01-05 11:40 | MHC.PC.OV ---
Vital Signs 01/05/24 11:44 Height 5 ft 6 in Weight 199 lb BMI 32.1 BP 142/62 H Blood Pressure Location Lt brachial Position Sitting Pulse 62 Pulse Source Pulse Oximeter Pulse Oximetry (%) 98 Oxygen Delivery Method Room Air Intake Visit Reasons: Annual PE - see comment Intake Note: Pt is here today for her PE: Allergies No Known Allergies Allergy (Verified 01/10/24 22:10) Medication List - Last Reconciled 01/10/24 by Jayleen uMjica MD atorvastatin 20 mg PO DAILY BD Ultra-Fine Short Pen Needle (pen needle, diabetic) administer 10 units subcutaneous at bedtime NS blood sugar diagnostic (Transfercaruch Verio test strips) Check blood sugar 3 times a day before meals cholecalciferol (vitamin D3) 25 mcg PO DAILY dulaglutide 1.5 mg (0.5 mL) subcut QWEEK 3 months empagliflozin 25 mg PO QAM 3 months ibuprofen 600 mg PO Q8H PRN lisinopril 5 mg PO DAILY metformin 1,000 mg PO BID 90 days Tobacco use date assessed: 01/05/24 Fall risk assessment: 1 Fall in past year Last assessed Fall Risk: 01/05/24 Dental Screening Dental Screen Date: 01/05/24 Did you have a dental visit in the last 12 months?: Yes Did you have a dental problem in the last 6 months where you did not have access to dental care?: No Was dental information given to patient?: Patient has dentist HPI Annual PE - see comment HPI Details 73-year-old lady with past medical history of hyperlipidemia, diabetes mellitus, hypertension, osteoarthritis, and osteopenia, here today for physical exam. She is up-to-date with her screening mammogram and bone density scan, done last year. Last colonoscopy was done in 2022, repeat due again in 2025 due to history of tubular adenoma in the past. [facility] Medical History (Updated 01/10/24 @ 22:37 by Jayleen Mujica MD) Family history of thyroid disease in sister History of adenomatous polyp of colon Osteoarthritis of right knee Recurrent cold sores Osteopenia of multiple sites HTN (hypertension) Dyslipidemia Diabetes mellitus with hyperglycemia, without long-term current use of insulin Surgical History Hx of colonoscopy History of knee surgery History of tubal ligation Family History Father Colon cancer CVD (cardiovascular disease) HTN (hypertension) Mother Goiter Diabetes mellitus Sister No problems noted. Sister No problems noted. Sister No problems noted. Son Mental health disorder Son No problems noted. Social History Housing: House Alcohol intake: never Patient Tobacco Use Status: Never used Tobacco e-Cigarette/Vaping Use: Never Used Second Hand Smoke Exposure: No service: No Current occupational status: retired Cognitive needs: No Hearing needs: No Vision needs: Yes Questionnaire PHQ-9 Over the last 2 weeks, how often have you been bothered by any of the following problems? 1. Little interest or pleasure in doing things: not at all 2. Feeling down, depressed, or hopeless: not at all 3. Trouble falling or staying asleep, or sleeping too much: not at all 4. Feeling tired or having little energy: not at all 5. Poor appetite or overeating: not at all 6. Feeling bad about yourself - or that you are a failure or have let yourself or your family down: not at all 7. Trouble concentrating on things, such as reading the newspaper or watching television: not at all 8. Moving or speaking so slowly that other people could have noticed. Or the opposite - being so fidgety or restless that you have been moving around a lot more than usual: not at all 9. Thoughts that you would be better off or of hurting yourself in some way: not at all Total score: 0 Depression Screening Interpretation: Negative Depression Screening Done: Yes Source: Developed by Drs. Rodger Harrington, Sharon Oneil, Aris Ojeda and colleagues, with an educational cassy from [employer]. Thrive Questionnaire Date Thrive assessed: 01/05/24 I am a: Patient What is your living situation today?: I have a steady place to live Within the past 12 months, did the food you bought not last and you didn't have the money to get more?: Never true Within the past 12 months, did you worry whether your food would run out before you got money to buy more?: Never true Do you have trouble paying for medicines?: No Do you have trouble getting transportation to medical appointments?: No Do you have trouble paying your heating and electricity bill?: No Do you have trouble taking care of your child, family member or friend?: No Do you have trouble with day-to-day activities such as bathing, preparing meals, shopping, managing finances, etc.?: No Are you interested in more education?: No Please select the resources that you would like help with: None Currently or been in a relationship where the following occur: No concerns reported THRIVE Score: 0 AUDIT C Alcohol Use Questionnaire (AUDIT-C) 1. How often do you have a drink containing alcohol?: Never Total Score: 0 KIMBER-7 AMB Questionnaire KIMBER-7 Date KIMBER - 7 assessed: 01/05/24 Feeling nervous, anxious, or on edge: 0 = Not at all Not being able to stop or control worryin = Not at all Worrying too much about different things: 0 = Not at all Trouble relaxin = Not at all Being so restless that it is hard to sit still: 0 = Not at all Becoming easily annoyed or irritable: 0 = Not at all Feeling afraid as if something awful might happen: 0 = Not at all Total KIMBER-7 score (0-4 normal; 5-9 mild; 10-14 moderate; 15-21 severe): 0 Source: Developed by Drs. Rodger Harrington, Sharon Oneil, Aris Ojeda and colleagues, with an educational cassy from [employer]. Review of Systems Const Denies body aches, Denies difficulty sleeping, Denies fatigue, Denies headache(s) and Denies malaise Eyes Details: Up-to-date with her retinopathy screening, sees [facility] , due 05/2023 Denies change in vision and Reports requires corrective lenses ENT Denies dizziness, Denies headache(s), Denies nasal congestion and Denies sore throat Card Denies chest pain, Denies lightheadedness, Denies palpitations and Denies dyspnea Resp Denies chest congestion, Denies cough and Denies dyspnea GI Denies abdominal pain, Denies change in bowel habits and Denies heartburn Denies urinary frequency, Denies dysuria and Denies urinary urgency Musc Denies joint swelling, Reports stiffness and Denies tingling Skin/Breast Denies lesions and Denies rash Neuro Denies dizziness, Denies headache(s) and Denies tingling Psych Reports no additional complaints Endo Denies fatigue, Denies polydipsia, Denies polyuria and Denies palpitations Shiv/Lymph Reports no additional complaints Aller/Immun Reports no additional complaints Physical exam (Primary Care) Vital Signs: Last Vital Signs Pulse 62 01/05/24 11:44 BP 142/62 H 01/05/24 11:44 Pulse Ox 98 01/05/24 11:44 Oxygen Delivery Method Room Air 01/05/24 11:44 BMI result Body Mass Index 32.1 Tobacco/Smoking Status: Tobacco use Status Tobacco use date assessed 01/05/24 01/05/24 11:41 Patient Tobacco Use Status Never used Tobacco 01/05/24 11:41 e-Cigarette/Vaping Use Never Used 01/05/24 11:41 PHQ-9: PHQ-9 Score PHQ-9: Total score 0 01/05/24 12:54 Depression Screening Interpretation: Negative Thrive Assessment: Date of Thrive Assessment Date Thrive assessed 01/05/24 01/05/24 11:41 Currently or been in a relationship where the following occur: No concerns reported Const Other: Alert oriented x3, no acute distress noted ambulatory with normal gait Orientation/consciousness: patient oriented x3 [facility] General nose exam: Normal external nose present and No nasal discharge present Face and sinus: Yes face symmetric Mouth: moist mucous membranes Eyes General: appearance normal, both eyes and all related structures Neck Neck: Yes full ROM, Yes no lymphadenopathy and Yes supple Chest Breast/axilla palpation: normal palpation of the breasts and normal palpation of the axillae Resp Effort & Inspection: normal respiratory effort and able to speak in complete sentences Auscultation: clear to auscultation bilaterally Cardio Other: S1 S2 present regular rate and rhythm Palpation: normal PMI GI Inspection: Yes normal to inspection Palpation (GI): nontender, no guarding and no masses Auscultation: normal bowel sounds General: Yes no CVA tenderness Back/Spine/Pelvis Back: no CVA tenderness and No back tenderness Skin General skin exam: no rashes or lesions noted Neuro General: patient oriented x3, gait normal, tone normal, moves all extremities, Normal light touch and pain sensation, no focal motor deficits, CN's II-XI intact bilaterally and normal sensation to monofilament Extrem General: Yes normal to inspection, Yes full ROM, Yes no joint enlargement, Yes no pedal edema, Yes no calf tenderness and Yes normal gait Psych Appearance: grossly normal and well kempt Mental Status: mental status grossly normal Speech and movement: Normal speech and movement present Affect: normal affect Attitude: cooperative Thought process: Normal thought process present Results AMB Hemoglobin A1c AMB Hemoglobin A1c 8.0 % Last Edit by Sol Roe CMA on 01/05/24 12:55 Results Reviewed Results Reviewed: Laboratory Last Values Hgb A1c (Clinic) 8.0 % (4.0-6.0) H 01/05/24 12:22 Name: Criss Geller Age/Sex: 73/F : 1950 Unit#: [id number] Attend Dr: Jayleen Mujica MD Re12/31/23 Status: DEP REF Location: [facility] Disch: SPEC : [id number] JENNA: 12/31/23 STATUS: COMP REQ : [id number] RECD: 12/31/[address]: Jayleen Mujica MD COMP: 12/31/23 ENTERED: 12/31/23 [facility] DR: ORDERED: CBC Auto Diff Test Result Flag Reference WBC 7.2 4.8-10.8 X10*3/uL RBC 5.05 4.20-5.50 X10*6/uL HGB 14.8 12.0-16.0 g/dl HCT 44.5 37.0-47.0 % MCV 88.1 80.0-98.0 fL MCH 29.3 27.0-33.0 pg MCHC 33.3 31.0-35.0 g/dl RDW 12.7 11.0-16.0 % PLT 404 H 160-400 X10*3/uL MPV 10.2 9.4-12.3 fL Neut Pct Auto 44.8 L 45-73 % ImGran Pct Auto 0.1 0.0-0.4 % Lymp Pct Auto 43.0 H 20-40 % [place] Pct Auto 6.4 2-11 % Eos Pct Auto 5.3 H 0-4 % Baso Pct Auto 0.4 0-2 % NRBC Pct Auto 0.0 0.0-0.2 /100WBC ANC Neut Abs # 3.2 2.0-8.3 x10*3/uL ImGran Abs Auto 0.01 0.00-0.03 X10*3/uL Lymph Abs Auto 3.1 1.2-4.9 X10*3/uL [place] Abs Auto 0.5 0.1-1.2 X10*3/uL Eos Abs Auto 0.4 0.0-0.4 X10*3/uL Baso Abs Auto 0.0 0.0-0.2 X10*3/uL NRBC Abs Auto 0.000 0.0-0.012 X10*3/uL Laboratory Tests 01/05/24 12:22 Hgb A1c ([facility]) 8.0 H Name: Criss Geller Age/Sex: 73/F : 1950 Unit#: [id number] Attend Dr: Jayleen Mujica MD Re12/31/23 Status: DEP REF [facility] Disch: SPEC : [id number] JENNA: 12/31/23 STATUS: COMP REQ : [id number] RECD: 12/31/[address]: Jayleen Mujica MD COMP: 12/31/23 ENTERED: 12/31/[address]: ORDERED: Met Prof Fast, AST, ALT, Lipid Panel, TSH Rflx Test Result Flag Reference Sodium 139 135-145 mmol/L Potassium 4.4 3.3-5.1 mmol/L CL 104 96-108 mmol/L CO2 23 22-29 mmol/L Gap 16 12-20 BUN 21 H 9-16 mg/dL Creat 1.00 0.5-1.4 mg/dL EGFR 55 NOTE: For -Marshall[place] individuals, multiply the result by 1.210. Chronic Kidney Disease: Estimated GFR < 60 mL/min/1.73m2 Severe Kidney Disease: Estimated GFR < 15 mL/min/1.73m2 FBS 126 H 60-99 mg/dL A fasting glucose of 126 mg/dl or greater on more than one occasion is considered diagnostic of diabetes. CA 10.0 8.4-10.2 mg/dL AST (GOT) 17 5-31 U/L ALT (GPT) 14 0-31 U/L Triglyceride 157 H <150 mg/dL Desirable Triglyceride: less than 150 mg/dL Borderline High Triglyceride 150-199 mg/dL High Triglyceride: 200-499 mg/dL Very High Triglyceride: greater than or equal to 5OO mg/dL Cholesterol 189 <200 mg/dL Desirable Cholesterol: less than 200 mg/dL Borderline High Cholesterol: 200-239 mg/dL High Cholesterol: greater than 239 mg/dL LDL Calculated 106 H <100 mg/dL Desirable LDL: less than 100 mg/dL Near Optimal/Above Optimal LDL: 110-129 mg/dL Borderline High LDL: 130-159 mg/dL High LDL: 160-189 mg/dL Very High LDL: greater than or equal to 190 mg/dL HDL 52 >40 mg/dL Desirable HDL: greater than 40 mg/dL Note: This HDL assay may give artificially low results in patients with liver disease. TSH 2.40 0.32-4.0 uIU/mL Assessment and Plan Assessment & Plan (1) Annual visit for general adult medical examination with abnormal findings: Code(s): Z00.01 - Encounter for general adult medical examination with abnormal findings Plan: Recent fasting lab results reviewed with patient. Continue with regular dental visit every 6 months and get yearly diabetes retinopathy screening.. Take adequate calcium in diet and vitamin-D 3 at 2000 IU per cap once a day, in addition to weight-bearing exercises to help maintain good muscle tone and weight control. Instructed to do self-breast exam, and reminded to get her yearly mammogram, due next month. Up-to-date with her screening colonoscopy. Reminded to get her yearly flu and COVID booster (2) Diabetes mellitus with hyperglycemia, without long-term current use of insulin: Code(s): E11.65 - Type 2 diabetes mellitus with hyperglycemia Qualifiers: Diabetes mellitus type: type 2 Qualified Code(s): E11.65 - Type 2 diabetes mellitus with hyperglycemia Plan: Recent lab results reviewed with patient, with sugar and hemoglobin A1c not at goal with, hemoglobin A1c at 8% . Continue metformin, empagliflozin at the same dose, and dulaglutide dose increased to 1.5 mg Q weekly. Continue to check fasting blood sugar at home, maintain log and bring to next appointment for review. Reinforced diabetic diet and regular exercise with patient. Counseled regarding importance of yearly diabetes retinopathy screening. Patient advised to inspect feet daily, for any signs of injury, callus or infection. Compliance with diet and regular exercise again stressed. Blood pressure goal is less than 130/80, goal LDL is less than 100 and goal hemoglobin A1c is less than 7% follow-up appointment made in 3 months, after fasting labs done. (3) Dyslipidemia: Code(s): E78.5 - Hyperlipidemia, unspecified Plan: Reviewed recent fasting lipid profile with patient with levels within normal limits except for slightly elevated LDL cholesterol . Continue atorvastatin 20 mg daily , in addition to adherence to low-cholesterol diet and regular exercise, at least 30 minutes 3 to 4 times a week. Advised patient to make healthy food choices, eat more fruits, vegetables, whole grains, wild caught fish and low-fat dairy. Limit amount of meat and fried or fatty food products, as well as processed foods and fast foods. Follow-up scheduled with repeat fasting lipid panel in 3 months. (4) HTN (hypertension): Code(s): I10 - Essential (primary) hypertension Qualifiers: Hypertension type: essential hypertension Qualified Code(s): I10 - Essential (primary) hypertension Plan: Blood pressure elevated on this visit. Continue lisinopril 5 mg once a day. Reinforced importance of following a low sodium diet, getting regular exercise, and lowering stress levels. Check blood pressure again in 3 months. (5) History of adenomatous polyp of colon: Code(s): Z86.010 - Personal history of colonic polyps Plan: Repeat colonoscopy due again in 2025 (6) Osteopenia of multiple sites: Code(s): M85.89 - Other specified disorders of bone density and structure, multiple sites Plan: Continue with cholecalciferol vitamin D3 at least 2000 units daily, encouraged to do regular weight-bearing exercise, and take adequate calcium from dietary sources, repeat another bone density scan next year Orders: Orders AMB Hemoglobin A1c 01/05/24 E11.65 - Type 2 diabetes mellitus with hyperglycemia Hemoglobin A1c 03/20/24 E11.65 - Type 2 diabetes mellitus with hyperglycemia, E78.5 - Hyperlipidemia, unspecified, I10 - Essential (primary) hypertension Alanine Aminotransferase 03/20/24 E11.65 - Type 2 diabetes mellitus with hyperglycemia, E78.5 - Hyperlipidemia, unspecified, I10 - Essential (primary) hypertension Aspartate Amino Transferase 03/20/24 E11.65 - Type 2 diabetes mellitus with hyperglycemia, E78.5 - Hyperlipidemia, unspecified, I10 - Essential (primary) hypertension Basic Metabolic Panel Fasting 03/20/24 E11.65 - Type 2 diabetes mellitus with hyperglycemia, E78.5 - Hyperlipidemia, unspecified, I10 - Essential (primary) hypertension Lipid Panel 03/20/24 E11.65 - Type 2 diabetes mellitus with hyperglycemia, E78.5 - Hyperlipidemia, unspecified, I10 - Essential (primary) hypertension Vitamin D 25-OH Total 03/20/24 E11.65 - Type 2 diabetes mellitus with hyperglycemia, E78.5 - Hyperlipidemia, unspecified, I10 - Essential (primary) hypertension Medications: Changed From Trulicity (dulaglutide) 0.75 mg (0.5 mL) subcut QWEEK 3 months 6.5 mL 3RF NS E11.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 To dulaglutide 1.5 mg (0.5 mL) subcut QWEEK 3 months 6.5 mL 3RF E11.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 Coding Level of Care Code Est Pt Prev Care >65y(17633) Diagnoses Annual visit for general adult medical examination with abnormal findings Z00.01 Type 2 diabetes mellitus with hyperglycemia, without long-term current use of insulin E11.65 Diabetes mellitus type: type 2 Dyslipidemia E78.5 Essential hypertension I10 Hypertension type: essential hypertension History of adenomatous polyp of colon Z86.010 Osteopenia of multiple sites M85.89
[2024-01-05 11:44] VITALS: BP 142/62; PULSE 62; O2SAT 98; BMI 32.1
== END 2024-01-05 12:24 | disposition home or self-care (01) ==
PROVIDERS: PCP Internal Medicine; Visit Provider Internal Medicine
DX: Z00.01 Encounter for general adult medical examination with abnormal findings (principal); E11.65 Type 2 diabetes mellitus with hyperglycemia; E78.5 Hyperlipidemia, unspecified; I10 Essential (primary) hypertension; Z86.010 Personal history of colon polyps; M85.89 Other specified disorders of bone density and structure, multiple sites

== ENCOUNTER → 2024-01-05 10:58 | Outpatient (BNVA) | payer MEDICARE, SELFPAY | PROVIDERS: PCP Internal Medicine; Visit Provider Internal Medicine | DX: E11.65 Type 2 diabetes mellitus with hyperglycemia (principal); I10 Essential (primary) hypertension; E78.5 Hyperlipidemia, unspecified | CPT/HCPCS: 83036; 96127 ==

== ENCOUNTER 2024-02-12 14:37 | Outpatient (REF) | payer MEDICARE, SELFPAY ==
--- NOTE | ~2024-02-12 | MM_ITS ---
EXAMINATION: MM SCREENING DIGITAL BREAST TOMOSYNTHESIS, BILATERAL CLINICAL INFORMATION: Screening. Asymptomatic. COMPARISON: Mammography: Comparison is made with available priors TECHNIQUE: Digital breast mammography with tomosynthesis is performed in both the craniocaudal and mediolateral oblique views along with computer-aided detection (CAD). FINDINGS: There are scattered areas of fibroglandular density (ACR BI-RADS breast composition Category b). There are no significant masses, abnormal calcifications, or other abnormalities. MM/MM tomosynthesis screening BI IMPRESSION: No mammographic evidence of malignancy. ASSESSMENT: BI-RADS BI-RADS 1 - Negative RECOMMENDATION: Routine annual mammography screening. 1 year F/U This examination should not preclude the clinical evaluation of a suspicious palpable abnormality. This patient's information was entered into a reminder system with a target due date for their next mammogram. Electronically signed by: Sadie Ag DO 02/22/2024 08:51 AM ROSIE
== END 2024-02-12 14:38 | disposition home or self-care (01) ==
LOC: HO.MAMMO 14:37
PROVIDERS: PCP Internal Medicine; Visit Provider Internal Medicine
DX: Z12.31 Encounter for screening mammogram for malignant neoplasm of breast (principal)
CPT/HCPCS: 77063; 77067

== ENCOUNTER → 2024-02-12 14:45 | Outpatient (BNV) | payer MEDICARE, SELFPAY | PROVIDERS: PCP Internal Medicine; Visit Provider Internal Medicine | DX: Z12.31 Encounter for screening mammogram for malignant neoplasm of breast (principal) | CPT/HCPCS: 77063; 77067 ==

== ENCOUNTER 2024-03-25 09:52 | Outpatient (REF) | payer MEDICARE, SELFPAY ==
[2024-03-25 13:33] LABS: Estimated Average Glucose 177 mg/dL; Hemoglobin A1C 216.7422 umol/L; Hemoglobin A1c % 7.8 % (<6.0); Total Hemoglobin (HGBA1C) 3531.4913 umol/L
[2024-03-25 13:39] LABS: Anion Gap 12 (12-20)
[2024-03-25 13:42] LABS: Alanine Aminotransferase 12 U/L (0-31); Aspartate Amino Transferase 19 U/L (5-31); Blood Urea Nitrogen 28 mg/dL (9-16); Calcium 9.6 mg/dL (8.4-10.2); Carbon Dioxide 28 mmol/L (22-29); Chloride 106 mmol/L (96-108); Cholesterol 182 mg/dL (<200); Estimated Glomerular Filt Rate > 60; Glucose Fasting 147 mg/dL (60-99); HDL Cholesterol 58 mg/dL (>40); LDL Cholesterol Calculated 106 mg/dL (<100); Sodium 142 mmol/L (135-145); Triglycerides 94 mg/dL (<150)
[2024-03-25 14:18] LABS: Vitamin D 25-OH Total 70.2 ng/mL (>30)
== END 2024-03-25 09:53 | disposition home or self-care (01) ==
LOC: HO.HMGCLDS 09:52
PROVIDERS: PCP Internal Medicine; Visit Provider Internal Medicine
DX: E11.65 Type 2 diabetes mellitus with hyperglycemia (principal); E78.5 Hyperlipidemia, unspecified; I10 Essential (primary) hypertension
CPT/HCPCS: 36415; 80048; 80061; 82306; 83036; 84450; 84460

== ENCOUNTER 2024-03-29 10:22 | Outpatient (AMB) | payer MEDICARE, SELFPAY ==
[2024-03-29 11:42] VITALS: BP 142/62; PULSE 71; O2SAT 93; BMI 32.8
--- NOTE | 2024-03-29 11:42 | A.OFFPC_ITS ---
Vital Signs 03/29/24 11:42 Height 5 ft 6 in Weight 203 lb BMI 32.8 BP 142/62 H Blood Pressure Location Rt brachial Position Sitting Pulse 71 Pulse Source Pulse Oximeter Pulse Oximetry (%) 93 Oxygen Delivery Method Room Air Intake Visit Reasons: 3m follow up - see comments Intake Note: Pt is here today for her 3mo. f/u Allergies No Known Allergies Allergy (Verified 03/29/24 12:00) Medication List - Last Reconciled 03/29/24 by Jayleen Mujica MD atorvastatin 20 mg PO DAILY BD Ultra-Fine Short Pen Needle (pen needle, diabetic) administer 10 units subcutaneous at bedtime NS blood sugar diagnostic ([employer] test strips) Check blood sugar 3 times a day before meals cholecalciferol (vitamin D3) 25 mcg PO DAILY dulaglutide 1.5 mg (0.5 mL) subcut QWEEK 3 months empagliflozin 25 mg PO QAM 3 months ibuprofen 600 mg PO Q8H PRN lisinopril 5 mg PO DAILY metformin 1,000 mg PO BID 90 days valacyclovir 2,000 mg (2 x 1 gram) PO Q12H Tobacco use date assessed: 03/29/24 Fall risk assessment: No Falls in past year Last assessed Fall Risk: 03/29/24 Dental Screening Dental Screen Date: 03/29/24 Did you have a dental visit in the last 12 months?: Yes Did you have a dental problem in the last 6 months where you did not have access to dental care?: No Was dental information given to patient?: Patient has dentist HPI 3m follow up - see comments HPI Details - The patient is a 74-year-old female pr esenting today for follow-up on her Type 2 Diabetes Mellitus. - Initial diagnosis of diabetes was blank ral years ago; current management includes medication with Trulicity at 1.5 mg - The patient has had diabetes control c hallenges as evidenced by fluctuating HbA1c levels, with a recent lower value of 7.8 from a prior high of 11.3, though not yet at goal (less than 7). - She reports inadequate dietary managem ent contributing to difficulty in controlling her diabetes. 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 - No physical symptoms or issues reporte d from Trulicity except for occasional discomfort at injection sites. - Patient has experienced weight stabili ty around 200 lbs with minimal weight loss with current management. - History of hypertension, managed with medication, used primarily for nephroprotection. - Annual retinal screenings performed wi th no diabetic retinopathy evident to date. [facility] Medical History Family history of thyroid disease in sister History of adenomatous polyp of colon Osteoarthritis of right knee Recurrent cold sores Osteopenia of multiple sites HTN (hypertension) Dyslipidemia Diabetes mellitus with hyperglycemia, without long-term current use of insulin Surgical History Hx of colonoscopy History of knee surgery History of tubal ligation Family History Father Colon cancer CVD (cardiovascular disease) HTN (hypertension) Mother Goiter Diabetes mellitus Sister No problems noted. Sister No problems noted. Sister No problems noted. Son Mental health disorder Son No problems noted. Social History Housing: House Alcohol intake: never Patient Tobacco Use Status: Never used Tobacco e-Cigarette/Vaping Use: Never Used Second Hand Smoke Exposure: No service: No Current occupational status: retired Cognitive needs: No Hearing needs: No Vision needs: Yes Questionnaire PHQ-9 Over the last 2 weeks, how often have you been bothered by any of the following problems? Depression Screening Interpretation: Negative Depression Screening Done: Yes Source: Developed by Drs. Rodger Harrington, Sharon Oneil, Aris Ojeda and colleagues, with an educational cassy from [employer]. Thrive Questionnaire Date Thrive assessed: 01/05/24 I am a: Patient What is your living situation today?: I have a steady place to live Within the past 12 months, did the food you bought not last and you didn't have the money to get more?: Never true Within the past 12 months, did you worry whether your food would run out before you got money to buy more?: Never true Do you have trouble paying for medicines?: No Do you have trouble getting transportation to medical appointments?: No Do you have trouble paying your heating and electricity bill?: No Do you have trouble taking care of your child, family member or friend?: No Do you have trouble with day-to-day activities such as bathing, preparing meals, shopping, managing finances, etc.?: No Are you currently unemployed and looking for a job?: No Are you interested in more education?: No Please select the resources that you would like help with: None Currently or been in a relationship where the following occur: No concerns reported THRIVE Score: 0 KIMBER-7 AMB Questionnaire KIMBER-7 Date KIMBER - 7 assessed: 01/05/24 Source: Developed by Drs. Rodger Harrington, Sharon Oneil, Aris Ojeda and colleagues, with an educational cassy from [employer]. Review of Systems Const Denies body aches, Denies difficulty sleeping, Denies fatigue, Denies headache(s) and Denies malaise Eyes Details: Up-to-date with her retinopathy screening, sees [facility] , due 05/2023 Denies change in vision and Reports requires corrective lenses ENT Denies dizziness, Denies headache(s), Denies nasal congestion and Denies sore throat Card Denies chest pain, Denies lightheadedness, Denies palpitations and Denies dyspnea Resp Denies chest congestion, Denies cough and Denies dyspnea GI Denies abdominal pain, Denies change in bowel habits and Denies heartburn Denies urinary frequency, Denies dysuria and Denies urinary urgency Musc Denies joint swelling, Reports stiffness and Denies tingling Skin/Breast Denies lesions and Denies rash Neuro Denies dizziness, Denies headache(s) and Denies tingling Psych Reports no additional complaints Endo Denies fatigue, Denies polydipsia, Denies polyuria and Denies palpitations Shiv/Lymph Reports no additional complaints Aller/Immun Reports no additional complaints Physical exam (Primary Care) Vital Signs: Last Vital Signs Pulse 71 03/29/24 11:42 BP 142/62 H 03/29/24 11:42 Pulse Ox 93 03/29/24 11:42 Oxygen Delivery Method Room Air 03/29/24 11:42 BMI result Body Mass Index 32.8 Tobacco/Smoking Status: Tobacco use Status Tobacco use date assessed 03/29/24 03/29/24 11:44 Patient Tobacco Use Status Never used Tobacco 03/29/24 11:44 e-Cigarette/Vaping Use Never Used 03/29/24 11:44 Depression Screening Interpretation: Negative Thrive Assessment: Date of Thrive Assessment Date Thrive assessed 01/05/24 03/29/24 11:44 Currently or been in a relationship where the following occur: No concerns reported Const Other: Alert oriented x3, no acute distress noted ambulatory with normal gait Orientation/consciousness: patient oriented x3 [facility] General nose exam: Normal external nose present and No nasal discharge present Face and sinus: Yes face symmetric Mouth: moist mucous membranes Eyes General: appearance normal, both eyes and all related structures Neck Neck: Yes full ROM, Yes no lymphadenopathy and Yes supple Resp Effort & Inspection: normal respiratory effort and able to speak in complete sentences Auscultation: clear to auscultation bilaterally Cardio Other: S1 S2 present regular rate and rhythm Palpation: normal PMI GI Inspection: Yes normal to inspection Palpation (GI): nontender, no guarding and no masses Auscultation: normal bowel sounds General: Yes no CVA tenderness Back/Spine/Pelvis Back: no CVA tenderness and No back tenderness Skin General skin exam: no rashes or lesions noted Neuro General: patient oriented x3, gait normal, tone normal, moves all extremities, Normal light touch and pain sensation, no focal motor deficits, CN's II-XI int act bilaterally and normal sensation to monofilament Extrem General: Yes normal to inspection, Yes full ROM, Yes no joint enlargement, Yes no pedal edema, Yes no calf tenderness and Yes normal gait Psych Appearance: grossly normal and well kempt Mental Status: mental status grossly normal Speech and movement: Normal speech and movement present Affect: normal affect Attitude: cooperative Thought process: Normal thought process present Results Reviewed Results Reviewed: Name: Criss Geller Age/Sex: 74/F : 1950 Unit#: [id number] Attend Dr: Jayleen Mujica MD Re03/25/24 Status: DEP [facility]F [facility] Disch: SPEC : [id number] JENNA: 03/25/24 STATUS: COMP REQ : [id number] RECD: 03/25/[address]: Jayleen Mujica MD COMP: 03/25/24 ENTERED: 03/25/24 [facility] DR: ORDERED: Met Prof Fast, AST, ALT, Lipid Panel, Vitamin D 25-OH Test Result Flag Reference Sodium 142 135-145 mmol/L Potassium 4.0 3.3-5.1 mmol/L CL 106 96-108 mmol/L CO2 28 22-29 mmol/L Gap 12 12-20 BUN 28 H 9-16 mg/dL Creat 0.83 0.5-1.4 mg/dL eGFR > 60 Chronic Kidney Disease: Estimated GFR < 60 mL/min/1.73m2 Severe Kidney Disease: Estimated GFR < 15 mL/min/1.73m2 FBS 147 H 60-99 mg/dL A fasting glucose of 126 mg/dl or greater on more than one occasion is considered diagnostic of diabetes. CA 9.6 8.4-10.2 mg/dL AST (GOT) 19 5-31 U/L ALT (GPT) 12 0-31 U/L Triglyceride 94 <150 mg/dL Desirable Triglyceride: less than 150 mg/dL Borderline High Triglyceride 150-199 mg/dL High Triglyceride: 200-499 mg/dL Very High Triglyceride: greater than or equal to 5OO mg/dL Cholesterol 182 <200 mg/dL Desirable Cholesterol: less than 200 mg/dL Borderline High Cholesterol: 200-239 mg/dL High Cholesterol: greater than 239 mg/dL LDL Calculated 106 H <100 mg/dL Desirable LDL: less than 100 mg/dL Near Optimal/Above Optimal LDL: 110-129 mg/dL Borderline High LDL: 130-159 mg/dL High LDL: 160-189 mg/dL Very High LDL: greater than or equal to 190 mg/dL HDL 58 >40 mg/dL Desirable HDL: greater than 40 mg/dL Note: This HDL assay may give artificially low results in patients with liver disease. Vit D 25-OH Tot 70.2 >30 ng/mL Health Based Reference Values* < 20 ng/mL Deficient 20-30 ng/mL Insufficient > 30 ng/mL Sufficient Laboratory Tests 01/05/24 03/25/24 12:22 09:55 Estimat Average Glucose 177 Hgb A1c (Clinic) 8.0 H Hemoglobin A1c % 7.8 H Laboratory Tests 09/25/23 10:25 Microalb/Creat Ratio 33.2 H Coding Level of Care Code Est Pt Level 4 (13802) Complex EM visit Add On G2211 Diagnoses Type 2 diabetes mellitus with hyperglycemia, without long-term current use of insulin E11.65 Diabetes mellitus type: type 2 Dyslipidemia E78.5 Essential hypertension I10 Hypertension type: essential hypertension Assessment & Plan Assessment & Plan (1) Diabetes mellitus with hyperglycemia, without long-term current use of insulin: Code(s): E11.65 - Type 2 diabetes mellitus with hyperglycemia Category: Medical Qualifiers: Diabetes mellitus type: type 2 Qualified Code(s): E11.65 - Type 2 diabetes mellitus with hyperglycemia (2) Dyslipidemia: Code(s): E78.5 - Hyperlipidemia, unspecified Category: Medical (3) HTN (hypertension): Code(s): I10 - Essential (primary) hypertension Category: Medical Qualifiers: Hypertension type: essential hypertension Qualified Code(s): I10 - Essential (primary) hypertension Plan 1. Adjustment of medications discussed, stopping the current box of medication: - Essential Hypertension: Continue antihypertensive therapy primarily for renal protection; maintain target blood pressure under 130/90. - Obesity: Provide advice on dietary modifications aiming at weight loss, potential use of related medications were discussed (Radha, Marie, Rebecca) but continuation with Trulicity for now. -continue Trulicity but dose increased to 3 mg subcutaneously given once a week, together with empagliflozin 25 mg daily in a.m. and metformin a 1000 mg twice a day for control of diabetes mellitus, with goal A1c to be at less than 7%. -recent fasting lipids are within normal limits, continued on atorvastatin 20 mg daily -repeat fasting labs in 06/2024 prior to next follow-up visit Patient was informed and verbally consented to the use of an ambient scribe for clinic note documentation during this visit. Orders: Orders Microalbumin, Random (w Creat) 06/18/24 E11.65 - Type 2 diabetes mellitus with hyperglycemia, E78.5 - Hyperlipidemia, unspecified, I10 - Essential (primary) hypertension, M85.89 - Other specified disorders of bone density and structure, multiple sites Lipid Panel 06/18/24 E11.65 - Type 2 diabetes mellitus with hyperglycemia, E78.5 - Hyperlipidemia, unspecified, I10 - Essential (primary) hypertension, M85.89 - Other specified disorders of bone density and structure, multiple sites Aspartate Amino Transferase 06/18/24 E11.65 - Type 2 diabetes mellitus with hyperglycemia, E78.5 - Hyperlipidemia, unspecified, I10 - Essential (primary) hypertension, M85.89 - Other specified disorders of bone density and structure, multiple sites Vitamin D 25-OH Total 06/18/24 E11.65 - Type 2 diabetes mellitus with hyperglycemia, E78.5 - Hyperlipidemia, unspecified, I10 - Essential (primary) hypertension, M85.89 - Other specified disorders of bone density and structure, multiple sites Hemoglobin A1c 06/18/24 E11.65 - Type 2 diabetes mellitus with hyperglycemia, E78.5 - Hyperlipidemia, unspecified, I10 - Essential (primary) hypertension, M85.89 - Other specified disorders of bone density and structure, multiple sites Alanine Aminotransferase 06/18/24 E11.65 - Type 2 diabetes mellitus with hyperglycemia, E78.5 - Hyperlipidemia, unspecified, I10 - Essential (primary) hypertension, M85.89 - Other specified disorders of bone density and structure, multiple sites Basic Metabolic Panel Fasting 06/18/24 E11.65 - Type 2 diabetes mellitus with hyperglycemia, E78.5 - Hyperlipidemia, unspecified, I10 - Essential (primary) hypertension, M85.89 - Other specified disorders of bone density and structure, multiple sites Medications: New dulaglutide (Trulicity) 3 mg (0.5 mL) subcut QWEEK 2 mL 5RF 30 days Discontinued dulaglutide Discontinued Reason: Doctor's Order 1.5 mg (0.5 mL) subcut QWEEK 3 months 6.5 mL 3RF E11.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
== END 2024-03-29 12:17 | disposition home or self-care (01) ==
PROVIDERS: PCP Internal Medicine; Visit Provider Internal Medicine
DX: E11.65 Type 2 diabetes mellitus with hyperglycemia (principal); E78.5 Hyperlipidemia, unspecified; I10 Essential (primary) hypertension

== ENCOUNTER → 2024-03-29 10:22 | Outpatient (BNVA) | payer MEDICARE, SELFPAY | PROVIDERS: PCP Internal Medicine; Visit Provider Internal Medicine | DX: E11.65 Type 2 diabetes mellitus with hyperglycemia (principal); E78.5 Hyperlipidemia, unspecified; I10 Essential (primary) hypertension | CPT/HCPCS: 99212 ==

== ENCOUNTER 2024-07-12 11:03 | Outpatient (REF) | payer MEDICARE, SELFPAY ==
[2024-07-12 13:46] LABS: Estimated Average Glucose 169 mg/dL; Hemoglobin A1c % 7.5 % (<6.0)
[2024-07-12 14:28] LABS: Creatinine Urine 77.66 mg/dL
[2024-07-12 14:58] LABS: Alanine Aminotransferase 14 U/L (0-31); Anion Gap 14 (12-20); Aspartate Amino Transferase 19 U/L (5-31); Blood Urea Nitrogen 33 mg/dL (9-16); Calcium 9.6 mg/dL (8.4-10.2); Carbon Dioxide 24 mmol/L (22-29); Chloride 108 mmol/L (96-108); Cholesterol 169 mg/dL (<200); Estimated Glomerular Filt Rate > 60; Glucose Fasting 120 mg/dL (60-99); HDL Cholesterol 58 mg/dL (>40); LDL Cholesterol Calculated 92 mg/dL (<100); Potassium 4.8 mmol/L (3.3-5.1); Sodium 141 mmol/L (135-145); Triglycerides 99 mg/dL (<150)
[2024-07-12 15:08] LABS: Vitamin D 25-OH Total 46.4 ng/mL (>30)
== END 2024-07-12 11:04 | disposition home or self-care (01) ==
LOC: HO.HMGCLDS 11:03
PROVIDERS: PCP Internal Medicine; Visit Provider Internal Medicine
DX: M85.89 Other specified disorders of bone density and structure, multiple sites (principal); I10 Essential (primary) hypertension; E78.5 Hyperlipidemia, unspecified; E11.65 Type 2 diabetes mellitus with hyperglycemia
CPT/HCPCS: 36415; 80048; 80061; 82043; 82306; 82570; 83036; 84450; 84460

== ENCOUNTER 2024-07-15 09:19 | Outpatient (AMB) | payer MEDICARE, SELFPAY ==
--- NOTE | 2024-07-15 09:15 | MHC.PC.OV ---
Intake Visit Reasons: 3 months f/up Intake Note: Pt is haivng a telehealth visit for her 3mo. f/u labs Allergies No Known Allergies Allergy (Verified 07/15/24 09:29) Medication List - Last Reconciled 07/15/24 by Jayleen Mujica MD atorvastatin 20 mg PO DAILY BD Ultra-Fine Short Pen Needle (pen needle, diabetic) administer 10 units subcutaneous at bedtime NS blood sugar diagnostic (TradeGigTouch Verio test strips) Check blood sugar 3 times a day before meals cholecalciferol (vitamin D3) 25 mcg PO DAILY dulaglutide (Trulicity) 3 mg (0.5 mL) subcut QWEEK 30 days empagliflozin (Jardiance) 25 mg PO QAM ibuprofen 600 mg PO Q8H PRN lisinopril 5 mg PO DAILY metformin 1,000 mg PO BID 90 days valacyclovir 2,000 mg (2 x 1 gram) PO Q12H Tobacco use date assessed: 07/15/24 Fall risk assessment: No Falls in past year Last assessed Fall Risk: 07/15/24 Dental Screening Dental Screen Date: 07/15/24 Did you have a dental visit in the last 12 months?: Yes Did you have a dental problem in the last 6 months where you did not have access to dental care?: No Was dental information given to patient?: Patient has dentist HPI 3 months f/up HPI Details 74-year-old lady with history of type 2 diabetes mellitus, hypertension and dyslipidemia, here today for her follow-up. She has been compliant with taking her medications, tried to stick to her diet during the holidays, but admits to not getting any regular exercise due to the weather. Her latest fasting labs showed hemoglobin A1c still elevated but lower than last check at 7.4%, her fasting lipids however are within normal limits as well as her vitamin-D levels. Up-to-date with her diabetes retinopathy screening, goes to [facility], with no retinopathy seen on last exam. h [facility] Medical History Family history of thyroid disease in sister History of adenomatous polyp of colon Osteoarthritis of right knee Recurrent cold sores Osteopenia of multiple sites HTN (hypertension) Dyslipidemia Diabetes mellitus with hyperglycemia, without long-term current use of insulin Surgical History Hx of colonoscopy History of knee surgery History of tubal ligation Family History Father Colon cancer CVD (cardiovascular disease) HTN (hypertension) Mother Goiter Diabetes mellitus Sister No problems noted. Sister No problems noted. Sister No problems noted. Son Mental health disorder Son No problems noted. Social History Housing: House Alcohol intake: never Patient Tobacco Use Status: Never used Tobacco e-Cigarette/Vaping Use: Never Used Second Hand Smoke Exposure: No service: No Current occupational status: retired Cognitive needs: No Hearing needs: No Vision needs: Yes Questionnaire PHQ-9 Over the last 2 weeks, how often have you been bothered by any of the following problems? 1. Little interest or pleasure in doing things: not at all 2. Feeling down, depressed, or hopeless: not at all 3. Trouble falling or staying asleep, or sleeping too much: not at all 4. Feeling tired or having little energy: not at all 5. Poor appetite or overeating: not at all 6. Feeling bad about yourself - or that you are a failure or have let yourself or your family down: not at all 7. Trouble concentrating on things, such as reading the newspaper or watching television: not at all 8. Moving or speaking so slowly that other people could have noticed. Or the opposite - being so fidgety or restless that you have been moving around a lot more than usual: not at all 9. Thoughts that you would be better off or of hurting yourself in some way: not at all Total score: 0 Depression Screening Interpretation: Negative Depression Screening Done: Yes 13835 - PHQ-9 Billing: Yes Source: Developed by Drs. Rodger Harrington, Sharon Oneil, Aris Ojeda and colleagues, with an educational cassy from [employer]. Thrive Questionnaire Date Thrive assessed: 07/15/24 I am a: Patient What is your living situation today?: I have a steady place to live Within the past 12 months, did the food you bought not last and you didn't have the money to get more?: Never true Within the past 12 months, did you worry whether your food would run out before you got money to buy more?: Never true Do you have trouble paying for medicines?: No Do you have trouble getting transportation to medical appointments?: No Do you have trouble paying your heating and electricity bill?: No Do you have trouble taking care of your child, family member or friend?: No Do you have trouble with day-to-day activities such as bathing, preparing meals, shopping, managing finances, etc.?: No Are you currently unemployed and looking for a job?: No Are you interested in more education?: No THRIVE Score: 0 AUDIT C Alcohol Use Questionnaire (AUDIT-C) 1. How often do you have a drink containing alcohol?: Never Total Score: 0 KIMBER-7 AMB Questionnaire KIMBER-7 Date KIMBER - 7 assessed: 07/15/24 Feeling nervous, anxious, or on edge: 0 = Not at all Not being able to stop or control worryin = Not at all Worrying too much about different things: 0 = Not at all Trouble relaxin = Not at all Being so restless that it is hard to sit still: 0 = Not at all Becoming easily annoyed or irritable: 0 = Not at all Feeling afraid as if something awful might happen: 0 = Not at all Total KIMBER-7 score (0-4 normal; 5-9 mild; 10-14 moderate; 15-21 severe): 0 Source: Developed by Drs. Rodger Harrington, Sharon Oneil, Aris Ojeda and colleagues, with an educational cassy from [employer]. KIMBER-7 Assessment Billing KIMBER-7 Assessment Tool: KIMBER-7 Assessment 22936 Review of Systems Const Denies body aches, Denies difficulty sleeping, Denies fatigue, Denies headache(s) and Denies malaise Eyes Details: Up-to-date with her retinopathy screening, [facility] Denies change in vision and Reports requires corrective lenses ENT Denies dizziness, Denies headache(s), Denies nasal congestion and Denies sore throat Card Denies chest pain, Denies lightheadedness, Denies palpitations and Denies dyspnea Resp Denies chest congestion, Denies cough and Denies dyspnea GI Denies abdominal pain, Denies change in bowel habits and Denies heartburn Denies urinary frequency, Denies dysuria and Denies urinary urgency Musc Denies joint swelling, Reports stiffness and Denies tingling Skin/Breast Denies lesions and Denies rash Neuro Denies dizziness, Denies headache(s) and Denies tingling Psych Reports no additional complaints Endo Denies fatigue, Denies polydipsia, Denies polyuria and Denies palpitations Shiv/Lymph Reports no additional complaints Aller/Immun Reports no additional complaints Physical exam (Primary Care) Tobacco/Smoking Status: Tobacco use Status Tobacco use date assessed 07/15/24 07/15/24 09:17 Patient Tobacco Use Status Never used Tobacco 07/15/24 09:17 e-Cigarette/Vaping Use Never Used 07/15/24 09:17 PHQ-9: PHQ-9 Score PHQ-9: Total score 0 07/15/24 19:31 Depression Screening Interpretation: Negative Thrive Assessment: Date of Thrive Assessment Date Thrive assessed 07/15/24 07/15/24 09:19 Telehealth Telehealth [facility] Location of provider rendering services: practice address Location of patient: address on file Patient Identification confirmed using: Name, : Yes Telehealth method: video Patient verbally consented to treatment: Yes Patient verbally consented to billing insurance company: Yes Patient informed of any privacy concerns related to visit: Yes Minutes spent on Phone/Video with Pt.: 20 Results Reviewed Results Reviewed: Laboratory Tests 07/12/24 11:07 Estimat Average Glucose 169 Hemoglobin A1c % 7.5 H Name: Criss Geller Age/Sex: 74/F : 1950 Unit#: [id number] Attend Dr: Jayleen Mujica MD Re07/12/24 Status: DEP [facility] Disch: SPEC : [id number] JENNA: 07/12/24 STATUS: COMP REQ : [id number] RECD: 07/12/24-[address]: Jayleen Mujica MD COMP: 07/12/24-1508 ENTERED: 07/12/24-[address]: ORDERED: Met Prof Fast, AST, ALT, Lipid Panel, Vitamin D 25-OH Test Result Flag Reference Sodium 141 135-145 mmol/L Potassium 4.8 3.3-5.1 mmol/L CL 108 96-108 mmol/L CO2 24 22-29 mmol/L Gap 14 12-20 BUN 33 H 9-16 mg/dL Creat 0.82 0.5-1.4 mg/dL eGFR > 60 Chronic Kidney Disease: Estimated GFR < 60 mL/min/1.73m2 Severe Kidney Disease: Estimated GFR < 15 mL/min/1.73m2 FBS 120 H 60-99 mg/dL A fasting glucose from 100-125 mg/dl is considered impaired (pre-diabetes). CA 9.6 8.4-10.2 mg/dL AST (GOT) 19 5-31 U/L ALT (GPT) 14 0-31 U/L Triglyceride 99 <150 mg/dL Desirable Triglyceride: less than 150 mg/dL Borderline High Triglyceride 150-199 mg/dL High Triglyceride: 200-499 mg/dL Very High Triglyceride: greater than or equal to 5OO mg/dL Cholesterol 169 <200 mg/dL Desirable Cholesterol: less than 200 mg/dL Borderline High Cholesterol: 200-239 mg/dL High Cholesterol: greater than 239 mg/dL LDL Calculated 92 <100 mg/dL Desirable LDL: less than 100 mg/dL Near Optimal/Above Optimal LDL: 110-129 mg/dL Borderline High LDL: 130-159 mg/dL High LDL: 160-189 mg/dL Very High LDL: greater than or equal to 190 mg/dL HDL 58 >40 mg/dL Desirable HDL: greater than 40 mg/dL Note: This HDL assay may give artificially low results in patients with liver disease. Vitamin D 25-OH 46.4 >30 ng/mL Health Based Reference Values* < 20 ng/mL Deficient 20-30 ng/mL Insufficient > 30 ng/mL Sufficient Coding Level of Care Code Tele Est Pt Level 4 (14870) Complex EM visit Add On G2211 Diagnoses Type 2 diabetes mellitus with hyperglycemia, without long-term current use of insulin E11.65 Diabetes mellitus type: type 2 Dyslipidemia E78.5 Essential hypertension I10 Hypertension type: essential hypertension Additional Codes KIMBER-7 Assessment Billing - KIMBER-7 Assessment Tool: KIMBER-7 Assessment 84188 ([id number]) PHQ-9 - 22402 - PHQ-9 Billing: Yes ([id number]) Assessment & Plan Assessment & Plan (1) Diabetes mellitus with hyperglycemia, without long-term current use of insulin: Code(s): E11.65 - Type 2 diabetes mellitus with hyperglycemia Category: Medical Qualifiers: Diabetes mellitus type: type 2 Qualified Code(s): E11.65 - Type 2 diabetes mellitus with hyperglycemia Plan: Some improvement noted in her hemoglobin A1c now down to 7.5% from 7.8% on last visit. Will continue on current dose of Jardiance, metformin, and Trulicity. Reinforced importance of following recommended diet and getting the size. Up-to-date with her diabetes retinopathy screening. Will see her back for follow-up in 4 months (2) Dyslipidemia: Code(s): E78.5 - Hyperlipidemia, unspecified Category: Medical Plan: Latest fasting lipids are within normal limits, continue on atorvastatin 20 mg daily (3) HTN (hypertension): Code(s): I10 - Essential (primary) hypertension Category: Medical Qualifiers: Hypertension type: essential hypertension Qualified Code(s): I10 - Essential (primary) hypertension Plan Continued on lisinopril 5 mg daily Orders: Orders Hemoglobin A1c 11/18/24 E11.65 - Type 2 diabetes mellitus with hyperglycemia, E78.5 - Hyperlipidemia, unspecified, I10 - Essential (primary) hypertension Alanine Aminotransferase 11/18/24 E11.65 - Type 2 diabetes mellitus with hyperglycemia, E78.5 - Hyperlipidemia, unspecified, I10 - Essential (primary) hypertension Basic Metabolic Panel Fasting 11/18/24 E11.65 - Type 2 diabetes mellitus with hyperglycemia, E78.5 - Hyperlipidemia, unspecified, I10 - Essential (primary) hypertension Aspartate Amino Transferase 11/18/24 E11.65 - Type 2 diabetes mellitus with hyperglycemia, E78.5 - Hyperlipidemia, unspecified, I10 - Essential (primary) hypertension Lipid Panel 11/18/24 E11.65 - Type 2 diabetes mellitus with hyperglycemia, E78.5 - Hyperlipidemia, unspecified, I10 - Essential (primary) hypertension Medications: Changed From empagliflozin (Jardiance) 25 mg PO QAM 90 tabs 1RF E11.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 To Jardiance (empagliflozin) 25 mg PO QAM 90 tabs 4RF NS E11.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 Refilled dulaglutide (Trulicity) 3 mg (0.5 mL) subcut QWEEK 30 days 2 mL 5RF atorvastatin 20 mg PO DAILY 90 tabs 5RF blood sugar diagnostic (OneTouch Verio test strips) Check blood sugar 3 times a day before meals 300 ea 3RF E11.65 - Type 2 diabetes mellitus with hyperglycemia
== END 2024-07-15 10:33 | disposition home or self-care (01) ==
LOC: HO.HMCC 09:19
PROVIDERS: PCP Internal Medicine; Visit Provider Internal Medicine
DX: E11.65 Type 2 diabetes mellitus with hyperglycemia (principal); E78.5 Hyperlipidemia, unspecified; I10 Essential (primary) hypertension

== ENCOUNTER → 2024-07-15 09:19 | Outpatient (BNVA) | payer MEDICARE, SELFPAY | PROVIDERS: PCP Internal Medicine; Visit Provider Internal Medicine | DX: E11.65 Type 2 diabetes mellitus with hyperglycemia (principal); E78.5 Hyperlipidemia, unspecified; I10 Essential (primary) hypertension | CPT/HCPCS: 96127 ==

== ENCOUNTER 2025-03-13 07:41 | Outpatient (REF) | payer MEDICARE, SELFPAY ==
--- OUTSIDE RECORDS SUMMARY | 2025-03-13 07:44 | XMS_ITS ---
Author Organization Unknown ENCOUNTERS Encounter Performer Location Date Diagnosis Diagnosis Status Pre Admit [address] [address] [id number] Outpatient [address] [address] [id number] [place] *Note: Encounters from your own facility or health system may be excluded. Allergies, Adverse Reactions, Alerts Allergen Type Severity Identification Date Medications Name Date Quantity Days Supplied GPI Number
[2025-03-13 11:03] LABS: Alanine Aminotransferase 14 U/L (0-31); Anion Gap 19 (12-20); Aspartate Amino Transferase 26 U/L (5-31); Blood Urea Nitrogen 37 mg/dL (9-16); Calcium 9.6 mg/dL (8.4-10.2); Carbon Dioxide 20 mmol/L (22-29); Chloride 104 mmol/L (96-108); Cholesterol 186 mg/dL (<200); Estimated Glomerular Filt Rate 54; HDL Cholesterol 51 mg/dL (>40); Potassium 4.3 mmol/L (3.3-5.1); Sodium 139 mmol/L (135-145); Triglycerides 156 mg/dL (<150)
== END 2025-03-13 07:42 | disposition home or self-care (01) ==
LOC: HO.HMGCLDS 07:41
PROVIDERS: PCP Internal Medicine; Visit Provider Internal Medicine
DX: I10 Essential (primary) hypertension (principal); E78.5 Hyperlipidemia, unspecified; E11.65 Type 2 diabetes mellitus with hyperglycemia
CPT/HCPCS: 36415; 80048; 80061; 83036; 84450; 84460

== ENCOUNTER 2025-03-15 13:15 | Outpatient (AMB) | payer MEDICARE, SELFPAY ==
--- NOTE | 2025-03-15 13:32 | MHC.PC.OV ---
Vital Signs 03/15/25 13:37 Height 5 ft 6 in Weight 201 lb BMI 32.4 BP 100/58 L Blood Pressure Location Rt brachial Position Sitting Respiration 16 Pulse 68 Pulse Source Pulse Oximeter Temp 97.4 F Temp Source Oral Pulse Oximetry (%) 98 Oxygen Delivery Method Room Air Intake Visit Reasons: Annual PE Intake Note: Pt is here today for her PE: Last mammogram 02/12/24, bone density scan 01/27/23, colonoscopy 07/10/23 Allergies No Known Allergies Allergy (Verified 03/15/25 13:47) Medication List - Last Reconciled 03/15/25 by Jayleen Mujica MD atorvastatin 20 mg PO DAILY BD Ultra-Fine Short Pen Needle (pen needle, diabetic) administer 10 units subcutaneous at bedtime NS blood sugar diagnostic ([employer] Verio test strips) Check blood sugar 3 times a day before meals cholecalciferol (vitamin D3) 25 mcg PO DAILY ibuprofen 600 mg PO Q8H PRN Jardiance (empagliflozin) 25 mg PO QAM NS lisinopril 5 mg PO DAILY metformin 1,000 mg PO BID 90 days Trulicity (dulaglutide) 3 mg (0.5 mL) subcut QWEEK 30 days NS valacyclovir 2,000 mg (2 x 1 gram) PO Q12H Tobacco use date assessed: 03/15/25 Fall risk assessment: No Falls in past year Last assessed Fall Risk: 03/15/25 Dental Screening Dental Screen Date: 03/15/25 Did you have a dental visit in the last 12 months?: Yes Did you have a dental problem in the last 6 months where you did not have access to dental care?: No Was dental information given to patient?: Patient has dentist HPI Annual PE HPI Details The patient is a 75 year here today for her physical exam. She has type 2 diabetes, with a recent HbA1c of 7.4%, currently on Jardiance 25 mg daily, metformin a 1000 mg twice a day, and Trulicity at 3 mg once a week. Currently on atorvastatin 20 mg, for treatment of dyslipidemia. Her recent lab results showed an increase in triglycerides, LDL, and total cholesterol, which is attributed to recent changes in dietary habits, including consumption of junk food. She reports being active, participating [facility] and takes daily walks. A bone density scan from 2023 indicated bone thinning. The patient takes vitamin D supplements and has no history of fractures. Her last mammogram was normal, and is due again in March. A colonoscopy is scheduled for 2026. The last eye exam was on June 17 and revealed no retinopathy. She already received pneumonia, shingles, and flu vaccinations, reporting a bad reaction to the high-dose flu shot received in January. [facility] Medical History (Updated 03/19/25 @ 15:27 by Jayleen Mujica MD) History of adenomatous polyp of colon Osteoarthritis of right knee Recurrent cold sores Osteopenia of multiple sites HTN (hypertension) Dyslipidemia Diabetes mellitus with hyperglycemia, without long-term current use of insulin Surgical History Hx of colonoscopy (~07/10/23) History of knee surgery History of tubal ligation Family History (Updated 03/19/25 @ 15:27 by Jayleen Mujica MD) Father Colon cancer CVD (cardiovascular disease) HTN (hypertension) Mother Goiter Diabetes mellitus Sister Thyroid disease Sister No problems noted. Sister No problems noted. Son Mental health disorder Son No problems noted. Social History Housing: House Alcohol intake: never Patient Tobacco Use Status: Never used Tobacco e-Cigarette/Vaping Use: Never Used Second Hand Smoke Exposure: No service: No Current occupational status: retired Cognitive needs: No Hearing needs: No Vision needs: Yes Questionnaire PHQ-9 Over the last 2 weeks, how often have you been bothered by any of the following problems? 1. Little interest or pleasure in doing things: not at all 2. Feeling down, depressed, or hopeless: not at all 3. Trouble falling or staying asleep, or sleeping too much: not at all 4. Feeling tired or having little energy: not at all 5. Poor appetite or overeating: not at all 6. Feeling bad about yourself - or that you are a failure or have let yourself or your family down: not at all 7. Trouble concentrating on things, such as reading the newspaper or watching television: not at all 8. Moving or speaking so slowly that other people could have noticed. Or the opposite - being so fidgety or restless that you have been moving around a lot more than usual: not at all 9. Thoughts that you would be better off or of hurting yourself in some way: not at all Total score: 0 Depression Screening Interpretation: Negative Depression Screening Done: Yes Source: Developed by Drs. Rodger Harrington, Sharon Oneil, Aris Ojeda and colleagues, with an educational cassy from [employer]. Thrive Questionnaire Date Thrive assessed: 01/05/24 I am a: Patient What is your living situation today?: I have a steady place to live Within the past 12 months, did the food you bought not last and you didn't have the money to get more?: Never true Within the past 12 months, did you worry whether your food would run out before you got money to buy more?: Never true Do you have trouble paying for medicines?: No Do you have trouble getting transportation to medical appointments?: No Do you have trouble paying your heating and electricity bill?: No Do you have trouble taking care of your child, family member or friend?: No Do you have trouble with day-to-day activities such as bathing, preparing meals, shopping, managing finances, etc.?: No Are you currently unemployed and looking for a job?: No Are you interested in more education?: No Please select the resources that you would like help with: None Currently or been in a relationship where the following occur: No concerns reported THRIVE Score: 0 AUDIT C Alcohol Use Questionnaire (AUDIT-C) 1. How often do you have a drink containing alcohol?: Never Total Score: 0 KIMBER-7 AMB Questionnaire KIMBER-7 Date KIMBER - 7 assessed: 07/15/24 Feeling nervous, anxious, or on edge: 0 = Not at all Not being able to stop or control worryin = Not at all Worrying too much about different things: 0 = Not at all Trouble relaxin = Not at all Being so restless that it is hard to sit still: 0 = Not at all Becoming easily annoyed or irritable: 0 = Not at all Feeling afraid as if something awful might happen: 0 = Not at all Total KIMBER-7 score (0-4 normal; 5-9 mild; 10-14 moderate; 15-21 severe): 0 Source: Developed by Drs. Rodger Harrington, Sharon Oneil, Aris Ojeda and colleagues, with an educational cassy from [employer]. Review of Systems Const Denies body aches, Denies difficulty sleeping, Denies fatigue, Denies headache(s) and Denies malaise Eyes Details: Up-to-date with her retinopathy screening, sees [facility] Denies change in vision and Reports requires corrective lenses ENT Denies dizziness, Denies headache(s), Denies nasal congestion and Denies sore throat Card Denies chest pain, Denies lightheadedness, Denies palpitations and Denies dyspnea Resp Denies chest congestion, Denies cough and Denies dyspnea GI Denies abdominal pain, Denies change in bowel habits and Denies heartburn Denies urinary frequency, Denies dysuria and Denies urinary urgency Musc Denies joint swelling, Reports stiffness and Denies tingling Skin/Breast Denies lesions and Denies rash Neuro Denies dizziness, Denies headache(s) and Denies tingling Psych Reports no additional complaints Endo Denies fatigue, Denies polydipsia, Denies polyuria and Denies palpitations Shiv/Lymph Reports no additional complaints Aller/Immun Reports no additional complaints Physical exam (Primary Care) Vital Signs: Last Vital Signs Temp 97.4 F 03/15/25 13:37 Pulse 68 03/15/25 13:37 Resp 16 03/15/25 13:37 BP 100/58 L 03/15/25 13:37 Pulse Ox 98 03/15/25 13:37 Oxygen Delivery Method Room Air 03/15/25 13:37 BMI result Body Mass Index 32.4 Tobacco/Smoking Status: Tobacco use Status Tobacco use date assessed 03/15/25 03/15/25 13:39 Patient Tobacco Use Status Never used Tobacco 03/15/25 13:33 e-Cigarette/Vaping Use Never Used 03/15/25 13:33 PHQ-9: PHQ-9 Score PHQ-9: Total score 0 03/15/25 13:55 Depression Screening Interpretation: Negative Thrive Assessment: Date of Thrive Assessment Date Thrive assessed 01/05/24 03/15/25 13:33 Currently or been in a relationship where the following occur: No concerns reported Const Other: Alert oriented x3, no acute distress noted ambulatory with normal gait [facility] General nose exam: Normal external nose present Face and sinus: Yes face symmetric Mouth: moist mucous membranes Eyes General: appearance normal, both eyes and all related structures Neck Neck: Yes full ROM, Yes no lymphadenopathy and Yes supple Resp Effort & Inspection: normal respiratory effort and able to speak in complete sentences Auscultation: clear to auscultation bilaterally Cardio Other: S1 S2 present regular rate and rhythm GI Inspection: Yes normal to inspection Palpation (GI): nontender, no guarding and no masses Auscultation: normal bowel sounds General: Yes no CVA tenderness Back/Spine/Pelvis Back: no CVA tenderness and No back tenderness Skin General skin exam: no rashes or lesions noted Neuro General: gait normal, tone normal, moves all extremities, Normal light touch and pain sensation, no focal motor deficits, CN's II-XI intact bilaterally and normal sensation to monofilament Extrem General: Yes normal to inspection, Yes full ROM, Yes no joint enlargement, Yes no pedal edema, Yes no calf tenderness and Yes normal gait Psych Appearance: grossly normal and well kempt Mental Status: mental status grossly normal Speech and movement: Normal speech and movement present Affect: normal affect Results Reviewed Results Reviewed: Name: Criss Geller Age/Sex: 75/F : 1950 Unit#: [id number] Attend Dr: Jayleen Mujica MD Re03/13/25 Status: DEP REF Location: [facility] Disch: SPEC : [id number] JENNA: 03/13/25 STATUS: COMP REQ : [id number] RECD: 03/13/25-[address]: Jayleen Mujica MD COMP: 03/13/25 ENTERED: 03/13/[address]: ORDERED: Met Prof Fast, AST, ALT, Lipid Panel Test Result Flag Reference Sodium 139 135-145 mmol/L Potassium 4.3 3.3-5.1 mmol/L CL 104 96-108 mmol/L CO2 20 L 22-29 mmol/L Gap 19 12-20 BUN 37 H 9-16 mg/dL Creat 1.00 0.5-1.4 mg/dL eGFR 54 Chronic Kidney Disease: Estimated GFR < 60 mL/min/1.73m2 Severe Kidney Disease: Estimated GFR < 15 mL/min/1.73m2 FBS 124 H 60-99 mg/dL A fasting glucose from 100-125 mg/dl is considered impaired (pre-diabetes). CA 9.6 8.4-10.2 mg/dL AST (GOT) 26 5-31 U/L ALT (GPT) 14 0-31 U/L Triglyceride 156 H <150 mg/dL Desirable Triglyceride: less than 150 mg/dL Borderline High Triglyceride 150-199 mg/dL High Triglyceride: 200-499 mg/dL Very High Triglyceride: greater than or equal to 5OO mg/dL Cholesterol 186 <200 mg/dL Desirable Cholesterol: less than 200 mg/dL Borderline High Cholesterol: 200-239 mg/dL High Cholesterol: greater than 239 mg/dL LDL Calculated 104 H <100 mg/dL Desirable LDL: less than 100 mg/dL Near Optimal/Above Optimal LDL: 110-129 mg/dL Borderline High LDL: 130-159 mg/dL High LDL: 160-189 mg/dL Very High LDL: greater than or equal to 190 mg/dL HDL 51 >40 mg/dL Desirable HDL: greater than 40 mg/dL Note: This HDL assay may give artificially low results in patients with liver disease. Laboratory Tests 07/12/24 03/13/25 11:15 07:55 Estimat Average Glucose 166 Hemoglobin A1c % 7.4 H Microalb/Creat Ratio 36.0 H Coding Level of Care Code Est Pt Prev Care >65y([id number]) Diagnoses Osteopenia of multiple sites M85.89 Type 2 diabetes mellitus with hyperglycemia, without long-term current use of insulin E11.65 Diabetes mellitus type: type 2 Dyslipidemia E78.5 Essential hypertension I10 Hypertension type: essential hypertension Osteoarthritis of right knee M17.11 Annual visit for general adult medical examination with abnormal findings Z00.01 Assessment & Plan Assessment & Plan (1) Osteopenia of multiple sites: Code(s): M85.89 - Other specified disorders of bone density and structure, multiple sites Category: Medical Plan: Based on a 2022 bone density scan showing bone thinning. The patient will continue vitamin D supplementation will take adequate calcium from dietary sources, in addition to doing regular weight-bearing exercise.. A repeat bone density scan will be ordered for next year. (2) Diabetes mellitus with hyperglycemia, without long-term current use of insulin: Code(s): E11.65 - Type 2 diabetes mellitus with hyperglycemia Category: Medical Qualifiers: Diabetes mellitus type: type 2 Qualified Code(s): E11.65 - Type 2 diabetes mellitus with hyperglycemia Plan: The current medication regimen of Jardiance 25 mg, metformin, and Trulicity will be continued without changes. A 90-day prescription for Jardiance with refills for one year has been sent to the pharmacy. The patient was counseled on improving diet and continue with regular moderate intensity exercise for at least 15-30 minutes daily. We will repeat labs in July 2025 before the next follow-up. Up-to-date with her diabetes retinopathy screening. (3) Dyslipidemia: Code(s): E78.5 - Hyperlipidemia, unspecified Category: Medical Plan: Reviewed recent fasting lipid profile with patient with LDL cholesterol slightly elevated and not at goal of less than 100 mg/dL. . Continue atorvastatin 20 mg daily , in addition to adherence to low-cholesterol diet and regular exercise, at least 30 minutes 3 to 4 times a week. Advised patient to make healthy food choices, eat more fruits, vegetables, whole grains, wild caught fish and low-fat dairy. Limit amount of meat and fried or fatty food products, as well as processed foods and fast foods. Follow-up scheduled with repeat fasting lipid panel in July 2025 (4) HTN (hypertension): Code(s): I10 - Essential (primary) hypertension Category: Medical Qualifiers: Hypertension type: essential hypertension Qualified Code(s): I10 - Essential (primary) hypertension Plan: Blood pressure at goal of less than 130/80. Continue with lisinopril 5 mg daily.. Reinforced importance of following a low sodium diet, getting regular exercise, and lowering stress levels. (5) Osteoarthritis of right knee: Code(s): M17.11 - Unilateral primary osteoarthritis, right knee Category: Medical Plan: Takes ibuprofen 600 mg every 8 hours only as needed for severe pain. Advised that taking on a regular basis is detrimental to her kidney function. Reminded not to take it off at all times. May alternate taking it with Tylenol 650 mg every 12 hours as needed for joint pain. (6) Annual visit for general adult medical examination with abnormal findings: Code(s): Z00.01 - Encounter for general adult medical examination with abnormal findings Plan: the patient's last mammogram was normal, and the next is due in March. A colonoscopy is scheduled for 2026. The last eye exam was on June 17 and revealed no retinopathy. The patient received pneumonia, shingles, and flu vaccinations, reporting a bad reaction to the high-dose flu shot received in January. Advised to get regular flu vaccine dose next time Orders: Orders XR DEXA axial skeleton 03/15/25 M85.89 - Other specified disorders of bone density and structure, multiple sites Lipid Panel 07/22/25 E11.65 - Type 2 diabetes mellitus with hyperglycemia, E78.5 - Hyperlipidemia, unspecified, I10 - Essential (primary) hypertension, M17.11 - Unilateral primary osteoarthritis, right knee, M85.89 - Other specified disorders of bone density and structure, multiple sites, Z86.010 - Personal history of colon polyps Hemoglobin A1c 07/22/25 E11.65 - Type 2 diabetes mellitus with hyperglycemia, E78.5 - Hyperlipidemia, unspecified, I10 - Essential (primary) hypertension, M17.11 - Unilateral primary osteoarthritis, right knee, M85.89 - Other specified disorders of bone density and structure, multiple sites, Z86.010 - Personal history of colon polyps Basic Metabolic Panel Fasting 07/22/25 E11.65 - Type 2 diabetes mellitus with hyperglycemia, E78.5 - Hyperlipidemia, unspecified, I10 - Essential (primary) hypertension, M17.11 - Unilateral primary osteoarthritis, right knee, M85.89 - Other specified disorders of bone density and structure, multiple sites, Z86.010 - Personal history of colon polyps Alanine Aminotransferase 07/22/25 E11.65 - Type 2 diabetes mellitus with hyperglycemia, E78.5 - Hyperlipidemia, unspecified, I10 - Essential (primary) hypertension, M17.11 - Unilateral primary osteoarthritis, right knee, M85.89 - Other specified disorders of bone density and structure, multiple sites, Z86.010 - Personal history of colon polyps Vitamin D 25-OH Total 07/22/25 E11.65 - Type 2 diabetes mellitus with hyperglycemia, E78.5 - Hyperlipidemia, unspecified, I10 - Essential (primary) hypertension, M17.11 - Unilateral primary osteoarthritis, right knee, M85.89 - Other specified disorders of bone density and structure, multiple sites, Z86.010 - Personal history of colon polyps Microalbumin, Random (w Creat) 07/22/25 E11.65 - Type 2 diabetes mellitus with hyperglycemia, E78.5 - Hyperlipidemia, unspecified, I10 - Essential (primary) hypertension, M17.11 - Unilateral primary osteoarthritis, right knee, M85.89 - Other specified disorders of bone density and structure, multiple sites, Z86.010 - Personal history of colon polyps Aspartate Amino Transferase 07/22/25 E11.65 - Type 2 diabetes mellitus with hyperglycemia, E78.5 - Hyperlipidemia, unspecified, I10 - Essential (primary) hypertension, M17.11 - Unilateral primary osteoarthritis, right knee, M85.89 - Other specified disorders of bone density and structure, multiple sites, Z86.010 - Personal history of colon polyps Medications: Refilled Jardiance (empagliflozin) 25 mg PO QAM 90 tabs 4RF NS E11.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
[2025-03-15 13:37] VITALS: BP 100/58; PULSE 68; RESP 16; TEMP 36.3; O2SAT 98; BMI 32.4
--- OUTSIDE RECORDS SUMMARY | 2025-03-15 16:22 | XMS_ITS ---
Author Organization Unknown ENCOUNTERS Encounter Performer Location Date Diagnosis Diagnosis Status Pre Admit [address] [id number] [address] [id number] [place] *Note: Encounters from your own facility or health system may be excluded. Allergies, Adverse Reactions, Alerts Allergen Type Severity Identification Date Medications Name Date Quantity Days Supplied GPI Number
== END 2025-03-15 14:08 | disposition home or self-care (01) ==
LOC: HO.HMCC 13:16
PROVIDERS: PCP Internal Medicine; Visit Provider Internal Medicine
DX: M85.89 Other specified disorders of bone density and structure, multiple sites (principal); E11.65 Type 2 diabetes mellitus with hyperglycemia; E78.5 Hyperlipidemia, unspecified; I10 Essential (primary) hypertension; M17.11 Unilateral primary osteoarthritis, right knee; Z00.01 Encounter for general adult medical examination with abnormal findings

== ENCOUNTER → 2025-03-15 13:15 | Outpatient (BNVA) | payer MEDICARE, SELFPAY | PROVIDERS: PCP Internal Medicine; Visit Provider Internal Medicine | DX: Z00.01 Encounter for general adult medical examination with abnormal findings (principal); M17.11 Unilateral primary osteoarthritis, right knee; I10 Essential (primary) hypertension; E78.5 Hyperlipidemia, unspecified; E11.65 Type 2 diabetes mellitus with hyperglycemia; M85.89 Other specified disorders of bone density and structure, multiple sites; Z13.31 Encounter for screening for depression; Z86.0100 Personal history of colon polyps, unspecified; Z79.899 Other long term (current) drug therapy | CPT/HCPCS: 96127; 99397 ==